=== PATIENT | female | born 1955 | race Caucasian/White ===

== ENCOUNTER 2019-08-29 08:03 | Inpatient (IN) | payer BC, SELFPAY ==
[2019-08-29] VITALS (41 sets, daily range): BP systolic 89–134; BP diastolic 56–95; PULSE 79–134; RESP 7–38; TEMP 36.5–37.1; O2SAT 94–99; BMI 27.4
--- NOTE | 2019-08-29 08:12 | XR_ITS ---
WS: [id number] PORTABLE CHEST HISTORY: chest pain COMPARISON: 03/22/2015 Lungs are clear and well expanded. No pleural effusion or pneumothorax. Cardiac size: Normal. Mediastinum/Aorta: Normal mediastinum. No osseous abnormality seen. XR/XR chest 1V portable [id number] IMPRESSION: Unremarkable portable chest.
--- NOTE | 2019-08-29 08:12 | ECG_ITS ---
Measurements Intervals [place] Rate: 73 P: 127 DE: 161 QRS: 193 QRSD: 84 T: 128 QT: 389 QTc: 430 SINUS RHYTHM ARM LEADS REVERSED [INVERTED P AND QRS IN I] INTERPRETATION BASED ON A DEFAULT AGE OF 40 YEARS No previous ECG available for comparison Electronically Signed On 08-29-2019 22:02:34 PENCIL INSPECTOR by Danielle Still M.D. [id number]
--- NOTE | 2019-08-29 08:18 | PC.NURSE ---
PORTABLE XRAY AT BEDSIDE
--- NOTE | 2019-08-29 08:20 | ED_ITS ---
Entered by Sam Leroy, acting as scribe for HPI - Chest Pain General: Chief Complaint: Chest Pain Stated Complaint: cp Time Seen by Provider: 08/29/19 08:29 History of Present Illness: HPI narrative: 63 yo female presents with chest pain. Pt took diazepam before being seen in the ER. Pt states that she was at work, recieved some bad news and her chest began hurting right after that. Pt states that she has had a stress related heart attack in the past. Pt states that she had some shortness of breath. MD complaint: chest pain Associated symptoms: Reports dyspnea; Deny abdominal pain, fever(s), nausea, palpitations or vomiting Review of Systems General: Reports: 10 or more systems reviewed and unremarkable except in HPI and below Const: Denies: fever, chills, body aches, change in appetite, change in weight or fatigue Eyes: Denies: change in vision, blurry vision, blind spots or photophobia ENMT: Denies: throat pain, uvular edema or enlarged tonsils Card: Reports: chest pain; Denies: palpitations or irregular heart rhythm Resp: Reports: shortness of breath; Denies: productive cough, non-productive cough or wheezing GI: Denies: abdominal pain, nausea, vomiting or vomiting blood : Denies: flank pain, difficulty urinating or painful urination Musc: Denies: neck pain, back pain or extremity pain Skin/Breast: Denies: rash, itching, redness or skin swelling Neuro: Denies: headache or numbness in extremities Psych: Reports: anxiety; Denies: depression or mood swings Endo: Denies: excessive urination or excessive thirst Will/Lymph: Denies: easy bruising or easy bleeding All/Imm: Denies: hives, throat swelling or tongue swelling PFSH ED PFSH: Statuses (acute, chronic, etc) shown below reflect problem list status as previously entered and may not be historically accurate Medical History (Updated 08/29/19 @ 10:57 by Ayaan Huerta DO) Anemia (Acute) Anxiety (Acute) Depression (Acute) Fibromyalgia (Acute) Heart attack (Acute) Hypothyroidism (Acute) Insomnia (Acute) Surgical History (Updated 08/29/19 @ 08:37 by Sam Leroy) H/O tubal ligation (Acute) History of bladder suspension procedure (Acute) History of knee replacement (Acute) Social History Smoking and tobacco status: former smoker Physical Exam Const: COMMON NORMALS: no apparent distress, average body habitus, oriented x3, no limitations, healthy appearing, alert and well nourished HENMT: COMMON NORMALS: normocephalic, head/scalp atraumatic, hearing grossly normal bilaterally, external ears normal, EAC's normal, TM's normal bilaterally, external nose normal, nasal mucous membranes and turbinates normal, moist oral mucous membranes, oropharynx normal, dentition normal and gingiva normal HEAD & SCALP: normocephalic and atraumatic NOSE: external nose normal and nasal mucous membranes and turbinates normal EXTERNAL EAR: Yes external ears normal EXTERNAL AUDITORY CANAL: EAC's normal TYMPANIC MEMBRANE: TM's normal bilaterally THROAT: no uvular edema Eye: COMMON NORMALS: PERRL, conjunctivae normal, no papilledema and fundi normal bilaterally CONJUNCTIVA: Yes conjunctivae normal PUPIL: Yes PERRL DIRECT OPHTHALMOSCOPY: Yes no papilledema and Yes fundi normal bilaterally Neck/C-Spine: COMMON NORMALS: full ROM, no lymphadenopathy, supple, no meningeal signs, no JVD, thyroid normal and no carotid bruits THYROID: thyroid normal Chest: COMMONS NORMALS: inspection of chest normal and palpation of chest normal Resp: COMMON NORMALS: normal respiratory effort, no retractions, no use of accessory muscles, clear to auscultation bilaterally and percussion normal AUSCULTATION: clear to auscultation bilaterally PERCUSSION: percussion normal Cardio: COMMON NORMALS: no JVD, regular rate, regular rhythm, S1 normal heart sound, S2 normal heart sound, no gallops, no clicks, no murmurs, no rub and peripheral pulses 2+ throughout RATE: regular rate RHYTHM: regular rhythm HEART SOUNDS: S1 normal and S2 normal PERIPHERAL PULSES: pulses 2+ throughout GI: COMMON NORMALS: normal to inspection, nondistended, normoactive bowel sounds, soft to palpation, non-tender, no hepatosplenomegaly, no masses and no bruits PALPATION: Yes soft and Yes no hepatosplenomegaly : COMMON NORMALS: Yes no CVA tenderness and Yes external appearance normal BLADDER/KIDNEY EXAM: Yes no CVA tenderness Back/Pelvis: COMMON NORMALS: no CVA tenderness, thoracic and lumbar spine normal to inspection, no thoracic nor lumbar tenderness, thoraco-lumbar ROM normal and straight leg raise negative bilaterally Extremity: COMMON NORMALS: normal to inspection, full ROM, normal capillary refill, no joint enlargement, no clubbing, cyanosis or edema, no calf tenderness and no pedal edema Neuro: COMMON NORMALS: oriented x3 SENSORIUM/ORIENTATION: Yes alert MENINGEAL SIGNS: Yes no meningeal signs Skin: COMMON NORMALS: no rashes or lesions noted, no wounds, skin turgor normal, no jaundice, no petechiae and no mottling GENERAL SKIN EXAM: no rashes or lesions noted and turgor normal Course Vital Signs: Vital signs: Vital Signs Temperature 97.7 F 08/29/19 08:09 Pulse Rate 85 08/29/19 10:56 Respiratory Rate 15 08/29/19 10:56 Blood Pressure 121/67 08/29/19 10:56 Pulse Oximetry 97 08/29/19 10:56 MDM - Chest Pain Lab Data: Labs: Lab Results 08/29/19 08/29/19 08/29/19 Range/Units 08:20 08:20 08:20 WBC 7.8 (4.0-10.0) 10^3/ uL RBC 4.30 (4.1-5.3) 10^6/u L Hgb 12.2 (11.5-15.3) g/dL Hct 38.5 (37.0-47.0) % MCV 89.5 (81-99) fL MCH 28.4 (28.0-34.0) pg MCHC 31.7 (30.0-36.0) g/dL RDW 14.1 (12.1-15.1) % Plt Count 269 (130-400) 10^3/c mm MPV 10.2 (7.4-10.4) fL Neut % (Auto) 59.1 % Lymph % (Auto) 28.3 % [place] % (Auto) 8.5 % Eos % (Auto) 3.3 % Baso % (Auto) 0.5 % Neut # (Auto) 4.6 (1.8-7.7) 10^3/u L Lymph # (Auto) 2.2 (0.8-4.8) 10^3/u L [place] # (Auto) 0.7 (0.2-0.9) 10^3/u L Eos # (Auto) 0.3 (0.0-0.8) 10^3/u L Baso # (Auto) 0.0 (0.0-0.1) 10^3/u L Nucleated RBC % (a uto) 0 % Nucleated RBCs # 0.0 /100WBC Sodium 141 (136-145) mmol/L Potassium 4.1 (3.5-5.1) mmol/L Chloride 103 (98-107) mmol/L Carbon Dioxide 27 (22-29) mmol/L Anion Gap 15.1 (5-19) BUN 14 (8-23) mg/dL Creatinine 0.7 (0.5-0.9) mg/dL GFR Calculation 84.5 L (90-130) mL/min Glucose 148 H (74-106) mg/dL Calcium 9.9 (8.8-10.2) mg/Dl Troponin T Baselin e 32 H (0-10) ng/mL Troponin T 120 Min nat[place] (0-10) ng/mL Delta Troponin T (0-10) ABS# TSH (0.27-4.20) uIU/ mL 08/29/19 08/29/19 Range/Units 08:23 10:18 WBC (4.0-10.0) 10^3/ uL RBC (4.1-5.3) 10^6/u L Hgb (11.5-15.3) g/dL Hct (37.0-47.0) % MCV (81-99) fL MCH (28.0-34.0) pg MCHC (30.0-36.0) g/dL RDW (12.1-15.1) % Plt Count (130-400) 10^3/c mm MPV (7.4-10.4) fL Neut % (Auto) % Lymph % (Auto) % [place] % (Auto) % Eos % (Auto) % Baso % (Auto) % Neut # (Auto) (1.8-7.7) 10^3/u L Lymph # (Auto) (0.8-4.8) 10^3/u L [place] # (Auto) (0.2-0.9) 10^3/u L Eos # (Auto) (0.0-0.8) 10^3/u L Baso # (Auto) (0.0-0.1) 10^3/u L Nucleated RBC % (a uto) % Nucleated RBCs # /100WBC Sodium (136-145) mmol/L Potassium (3.5-5.1) mmol/L Chloride (98-107) mmol/L Carbon Dioxide (22-29) mmol/L Anion Gap (5-19) BUN (8-23) mg/dL Creatinine (0.5-0.9) mg/dL GFR Calculation (90-130) mL/min Glucose (74-106) mg/dL Calcium (8.8-10.2) mg/Dl Troponin T Baselin e (0-10) ng/mL Troponin T 120 Min [place] 113.60 H (0-10) ng/mL Delta Troponin T 81.60 H* (0-10) ABS# TSH 2.52 (0.27-4.20) uIU/ mL Discharge Plan Discharge Patient Disposition: Admitted As Inpatient Clinical Impression: Non-ST elevation [place] (NSTEMI), Unstable angina pectoris Condition: Fair Referrals: Anju Lloyd MD [Family Provider] - Coding Level of Care Code ED Storage Battery Inspector for Chg Fwd Exam Problem Focused The documentation recorded by the Rad floyd Kialy, accurately reflects the service I personally performed and the decisions made by , Ayaan Huerta, Aug 29, 2019 08:03
[2019-08-29 08:30] LABS: Basophils % 0.5 %; Eosinophils # 0.3 10^3/uL (0.0-0.8); Eosinophils % 3.3 %; Hematocrit 38.5 % (37.0-47.0); Hemoglobin 12.2 g/dL (11.5-15.3); Lymphocytes # 2.2 10^3/uL (0.8-4.8); Lymphocytes % 28.3 %; Mean Corpuscular HGB Conc 31.7 g/dL (30.0-36.0); Mean Corpuscular Hemoglobin 28.4 pg (28.0-34.0); Mean Corpuscular Volume 89.5 fL (81-99); Mean Platelet Volume 10.2 fL (7.4-10.4); Monocytes # 0.7 10^3/uL (0.2-0.9); Monocytes % 8.5 %; Neutrophils # 4.6 10^3/uL (1.8-7.7); Neutrophils % 59.1 %; Nucleated Red Blood Cells % 0 %; Platelet Count 269 10^3/cmm (130-400); Red Cell Distribution Width 14.1 % (12.1-15.1); White Blood Count 7.8 10^3/uL (4.0-10.0)
[2019-08-29 08:49] LABS: Anion Gap 15.1 (5-19); Blood Urea Nitrogen 14 mg/dL (8-23); Calcium 9.9 mg/Dl (8.8-10.2); Carbon Dioxide 27 mmol/L (22-29); Chloride 103 mmol/L (98-107); Glomerular Filtration Rate 84.5 mL/min (90-130); Glucose 148 mg/dL (74-106); Potassium 4.1 mmol/L (3.5-5.1); Sodium 141 mmol/L (136-145)
[2019-08-29 08:51] LABS: Troponin(5th) Baseline 32 ng/mL (0-10)
[2019-08-29] MEDS: ondansetron 2 mg/ML SDV 2 mL 4 MG IVP (09:17)
[2019-08-29] MEDS: morphine 4 mg/mL SDV 1 mL 2 MG IVP (09:17)
[2019-08-29 09:53] LABS: Thyroid Stimulating Hormone 2.52 uIU/mL (0.27-4.20)
--- NOTE | 2019-08-29 10:12 | ECG_ITS ---
Measurements Intervals [employer] Rate: 85 P: 51 [place]: 157 QRS: 11 QRSD: 85 T: 92 QT: 383 QTc: 456 SINUS RHYTHM LOW QRS VOLTAGE IN PRECORDIAL LEADS [QRS DEFLECTION < 1.0 mV IN CHEST LEADS] NONSPECIFIC T-WAVE ABNORMALITY No previous ECG available for comparison Electronically Signed On 08-29-2019 22:08:01 MULTINEEDLE SHIRRER by Danielle Still M.D. [id number]
--- NOTE | 2019-08-29 11:06 | USCV_ITS ---
Suzan Moncada Age: 63 Gender: F : 1955 Exam Date: 08/29/2019 16:22 Ordering Phys: Ayaan Huerta DO Technologist: Mattie Mahoney Exam Location: [facility] Indication: NSTEMI BP: 89 / 59 HR: 89 Rhythm: Sinus Technical Quality: Adequate MEASUREMENTS (Male / Female) Normal Values 2D ECHO LV Diastolic Diameter PLAX 4.4 cm 4.2 - 5.9 / 3.9 - 5.3 cm LV Systolic Diameter PLAX 3.4 cm LV Chamber Size 3.7 cm IVS Diastolic Thickness 1.4 cm 0.6 - 1.0 / 0.6 - 0.9 cm IVS Systolic Thickness 1.5 cm LVPW Diastolic Thickness 2.0 cm 0.6 - 1.0 / 0.6 - 0.9 cm LVPW Systolic Thickness 2.1 cm RV Chamber Size 2.5 cm LVOT Diameter 2.0 cm LV Ejection Fraction 2D Teich 45.5 % LV Ejection Fraction MOD 2C 60.8 % LV Ejection Fraction 2C AL 63.0 % LA Diameter 3.9 cm LA Width 2.7 cm LA Height 3.8 cm RA Width 2.1 cm RA Height 3.5 cm Aorta at Sinotubular Diameter 2.6 cm M-MODE LV Diastolic Diameter MM 5.4 cm 4.2 - 5.9 / 3.9 - 5.3 cm LV Systolic Diameter MM 4.0 cm LV Ejection Fraction MM Teich 51.1 % IVS Diastolic Thickness MM 0.9 cm 0.6 - 1.0 / 0.6 - 0.9 cm IVS Systolic Thickness MM 1.0 cm LVPW Diastolic Thickness MM 1.0 cm 0.6 - 1.0 / 0.6 - 0.9 cm LVPW Systolic Thickness MM 1.1 cm Aortic Annulus Diameter 3.1 cm LA Ao Ratio MM 1.3 MV E Point Septal Separation 1.0 cm DOPPLER AV Peak Velocity 111.0 cm/s LVOT Peak Velocity 87.0 cm/s AV Area Cont Eq vti 2.8 cm squared AV Area Cont Eq pk 2.6 cm squared MV Area PHT 8.5 cm squared Mitral E to A Ratio 0.6 MV E' Velocity 44.0 cm/s Mitral E to MV E' Ratio 6.8 Mitral E to LV E' Lateral Ratio 8.0 Mitral E to LV E' Septal Ratio 6.1 TR Peak Velocity 177.0 cm/s TR Peak Gradient 12.5 mmHg TV Peak E Velocity 64.0 cm/s Right Atrial Pressure 3.0 mmHg Pulmonary Artery Systolic Pressu 15.5 mmHg PV Peak Velocity 80.0 cm/s RV Acceleration Time 0.2 s RV Ejection Time 0.4 s RV AcT/ET 0.5 FINDINGS Left Ventricle Moderate hypokinesia of the basal and mid septum in the anteroseptal segments. LV ejection fraction was around 50%.Grade I/IV diastolic dysfunction (abnormal relaxation filling pattern), normal to mildly elevated filling pressures. Right Ventricle Normal right ventricular size and systolic function. Right Atrium Normal right atrial size. Left Atrium Mildly increased left atrial size. Mitral Valve No gross abnormalities noted Aortic Valve No gross abnormalities noted Tricuspid Valve No gross abnormalities noted Pulmonic Valve Pulmonic valve not well visualized. Pericardium No pericardial effusion. Aorta Normal aortic annulus size. CONCLUSIONS Moderate hypokinesia of the basal and mid septum and the anteroseptal segments. LV ejection fraction was around 45 -50%. Grade I/IV diastolic dysfunction (abnormal relaxation filling pattern), normal to mildly elevated filling pressures. Left ventricle is mildly dilated. The other chambers appears to be of normal size No significant stenotic valvular lesions. There is no pericardial effusion. There are no intracardiac masses. No similar previous studies are available for comparison Dr Danielle Still MD [facility] WITH [facility] (Electronically Signed) Final Date: 29 August 2019 17:18 S
--- NOTE | 2019-08-29 11:33 | PC.NURSE ---
hospitalist (Dr. Rojas) in room to evaluate pt in ER
--- NOTE | 2019-08-29 12:05 | PM.HP ---
Providers/Chief Complaint Admitting Physician: Rama Rojas DO Primary Care Provider: Dr. Lloyd Chief Complaint: Chest pain History of Present Illness Suzan Moncada is a 63 year old female with a past medical history of hypothyroidism that presented to the emergency department today for chest pain. She stated that she was at work this morning when she began having a spasm-like pain in the center of her chest that was radiating almost all the way through her back. She stated that she believed it was due to stress because she just found out this morning that her best friend overnight. She stated that the pain was severe rating up into the left side of her neck and stated that she felt like she just needed to keep taking big deep breaths in. She stated that she took some diazepam at home but due to continued chest pain she came into the ER for further evaluation and treatment. She reports having a history of a stress-induced heart attack in the past. Patient reported that she had been feeling well prior to this episode, no recent illness. Patient denies any fevers or chills, no sick contacts. She reports a viral upper respiratory infection in July, however has been doing well since that time. Patient was seen and evaluated in the emergency department and due to concern for non-ST elevation [place] cardiology was consulted and patient was admitted for further evaluation and treatment. Review of Systems Const: Denies: fever or chills Eyes: Denies: change in vision ENMT: Denies: nasal congestion Card: Reports: chest pain; Denies: palpitations or edema Resp: Denies: shortness of breath, productive cough or coughing up blood GI: Reports: nausea; Denies: abdominal pain, vomiting, diarrhea, constipation, blood in stool or black tarry stool : Denies: painful urination or blood in urine Musc: Denies: extremity pain or muscle cramps Skin/Breast: Denies: rash or new lesion Neuro: Denies: headache or dizziness Psych: Reports: other (upset due to loss of her best friend) Endo: Denies: excessive urination or hot flashes Will/Lymph: Denies: easy bruising or easy bleeding Medications/Allergies Home Medications Medication Instructions Recorded Confirmed Last Taken Type bupropion HCl mg PO 08/29/19 08/29/19 Unknown History levothyroxine 08/29/19 08/29/19 Unknown History Allergies Allergy/AdvReac Type Severity Reaction Status Date / Time No Known Allergies Allergy Verified 08/29/19 08:05 PFSH Acute PFSH: Statuses (acute, chronic, etc) shown below reflect problem list status as previously entered and may not be historically accurate Medical History (Updated 08/29/19 @ 12:13 by Rama Rojas DO) Anemia (Acute) Anxiety (Acute) Depression (Acute) Fibromyalgia (Acute) Hypothyroidism (Acute) Insomnia (Acute) Surgical History H/O tubal ligation (Acute) History of bladder suspension procedure (Acute) History of knee replacement (Acute) L knee Hx of cardiac cath (Acute) 05/08/[address] Still Family History (Updated 08/29/19 @ 12:14 by Rama Rojas DO) Grandmother Diabetes Mother History of permanent cardiac pacemaker placement Due to believed irregular heartbeat Father CAD (coronary artery disease) Social History (Updated 08/29/19 @ 12:14 by Rama Rojas DO) Smoking and tobacco status: former smoker Alcohol intake: never Substance/Drug Use: never Household members: spouse Marital status: Vitals/I&O/Wt Last Vital Signs Temp 97.7 F 08/29/19 08:09 Pulse 85 08/29/19 10:56 Resp 15 08/29/19 10:56 BP 121/67 08/29/19 10:56 Pulse Ox 97 08/29/19 10:56 Weight last 48 hrs Weight 74.843 kg Physical Exam Const: COMMON NORMALS: oriented x3 and alert GENERAL APPEARANCE: cooperative ORIENTATION/CONSCIOUSNESS: Yes awake, Yes oriented to person, Yes oriented to place and Yes oriented to time HENMT: COMMON NORMALS: normocephalic and head/scalp atraumatic HEAD & SCALP: normocephalic and atraumatic Eye: COMMON NORMALS: PERRL PUPIL: Yes PERRL Neck/C-Spine: COMMON NORMALS: supple GENERAL: Yes normal visual inspection Resp: COMMON NORMALS: normal respiratory effort and clear to auscultation bilaterally EFFORT & INSPECTION: Yes able to speak in complete sentences AUSCULTATION: clear to auscultation bilaterally, no rhonchi and no wheezes Cardio: COMMON NORMALS: regular rate and regular rhythm RATE: regular rate RHYTHM: regular rhythm OTHER: faint systolic murmur GI: COMMON NORMALS: soft to palpation and non-tender INSPECTION: No abdominal distension AUSCULTATION: Yes normoactive bowel sounds PALPATION: Yes soft Extremity: COMMON NORMALS: no clubbing, cyanosis or edema and no calf tenderness Neuro: COMMON NORMALS: oriented x3, CN's II-XII intact bilaterally, moves all extremities and no focal motor deficits SENSORIUM/ORIENTATION: Yes alert, Yes oriented to person, Yes oriented to place and Yes oriented to time SPEECH: speech normal Psych: COMMON NORMALS: mental status grossly normal and cooperative Skin: COMMON NORMALS: no rashes or lesions noted Data : 08/29/19 08:20 08/29/19 08:20 CXR: I personally reviewed and interpreted this imaging study as follows: My impression: No acute cardiopulmonary process A&P Assessment and plan (1) Non-ST elevation [place] (NSTEMI): Admit to cardiac stepdown with telemetry Serial EKG and troponin Patient is now chest pain-free, nitro as needed, treatment dose Lovenox and loading dose of Plavix Continue aspirin and statin Cardiology consultation due to non-ST elevation [place], appreciate consultation by Dr. Still, will follow up with recommendations Patient reports history of stress induced heart attack in the past, cardiac cath from 05/08/[address] Still reviewed. Status: Acute Code(s): I21.4 - Non-ST elevation (NSTEMI) myocardial infarction Additional A&P Information Hypothyroidism: Continue home levothyroxine, TSH within normal limits Depression: Continue home bupropion 150 mg daily Anxiety: On diazepam as needed at home Bereavement: Loss of her best friend last night Hyperglycemia without prior history of diabetes: We will check hemoglobin A1c Attestations Medical Necessity Statement*: Patient requires hospitalization due to non-ST elevation [place], expected stay greater than 2 midnights Coding Level of Care Code Acute Privacy Analyst for [facility] Diagnoses Non-ST elevation [place] (NSTEMI) I21.4
[2019-08-29 12:09] LABS: INR 0.98 (0.8-1.2)
[2019-08-29 12:16] LABS: Chol HDL Ratio 4.13 mg/dL (0.0-4.40); Cholesterol 223 mg/dL (0-200); HDL Cholesterol 54 mg/dL (60-100); LDL Cholesterol Calculated 137 mg/dL (50-129); LDL HDL Ratio 2.54 RATIO (0.00-3.22); Triglycerides 159 mg/dL (0-150)
[2019-08-29 12:35] LABS: Estmated Average Glucose 143; Hemoglobin A1C 6.6 % (4.0-6.0)
--- NOTE | 2019-08-29 14:12 | ECG_ITS ---
Measurements Intervals [place] Rate: 84 P: 50 NM: 153 QRS: 4 QRSD: 85 T: 86 QT: 391 QTc: 464 SINUS RHYTHM LOW QRS VOLTAGE IN PRECORDIAL LEADS [QRS DEFLECTION < 1.0 mV IN CHEST LEADS] SEPTAL MYOCARDIAL INFARCTION [40+ ms Q WAVE IN V1/V2], PROBABLY OLD No previous ECG available for comparison Electronically Signed On 08-29-2019 22:08:37 KEY HOLDER by Danielle Still M.D. [email or web address]
[2019-08-29 15:27] LABS: Troponin 5 6HR 161.1 ng/L (0-10); Troponin 5 6HR Delta 129.1 ng/L (0-12)
--- NOTE | 2019-08-29 16:34 | PM.CONSULT ---
Providers/Reason For Consult Consulting Physican/Specialty*: Krupa Still MD/cardiology Reason for Consult*: Patient with the chest pain and elevated troponin T Attending Physician: Rama Rojas MD History of Present Illness History of Present Illness Suzan Moncada is a 63 year old female is admitted to the hospital with a prolonged episode of chest pain and elevated troponin I. Patient apparently has been in her baseline state of health up until this morning while she was at work, came to find out that 1 of her coworkers of motor vehicle accident last night. This was a very stressful news since the diseased was her coworker for many years. She started having pain in the upper part of the chest, radiating across the chest, to the shoulders and to the back. She might have had some associated nausea and dizziness. Intensity of the pain was 5/10. She took the medication for anxiety and rested for a while. There was no relief of the symptoms. At that point, she decided to come to the hospital. In the emergency room, patient was given morphine and Zofran. The pain gradually subsided. Total duration of the pain was 1-1/2 hours. Currently at the time of my examination, the patient is pain-free. She has some funny feeling in the chest. No other specific complaints. In April 2009, she presented to the hospital with a more or less similar complaints. She had features of possibly stress-induced myocardial infarction. Her coronary angiogram revealing no significant obstructive coronary artery disease. Her LV ejection fraction was around 45% at that time. She has not had any recurrence of similar chest pain since then up until today. She has no history for hypertension, diabetes or dyslipidemia. She has a history of hypothyroidism, anxiety/depressive illness, fibromyalgia Review of Systems Const: Reports: other (Anorexia); Denies: fever, chills, change in appetite, fatigue or night sweats Eyes: Denies: change in vision, blurry vision or eye discomfort ENMT: Denies: bleeding gums, nose bleeds or other (Spinning Sensation, Trouble Swallowing) Card: Denies: syncope, pre-syncope, shortness of breath when lying down or leg pain with exertion Resp: Denies: productive cough, change in phlegm color or coughing up blood GI: Reports: nausea; Denies: vomiting, vomiting blood, bloating, blood in stool or black tarry stool : Denies: blood in urine or vaginal bleeding Musc: Denies: neck pain, extremity pain, extremity swelling, redness, muscle cramps, muscle weakness or other (Neck Pain or Swollen Glands) Skin/Breast: Denies: rash, itching, redness, new lesion, changes in skin color, yellow skin, nail changes or breast mass/lump Neuro: Reports: numbness in extremities (She has been having complaining of numbness/also sensation in the lateral 3 fingers bilaterally and also some perioral numbness.) and changes in sensation; Denies: headache, lack of coordination, frequent falls, dizziness, vertigo, seizure-like activity or other (TIA, Numbness) Psych: Reports: anxiety, depression and other Endo: Denies: excessive urination, excessive thirst or other (Abnormal Hair Loss) Will/Lymph: Denies: easy bruising All/Imm: Denies: hives Meds/Allergies Home Medications and Allergies Home Medications Medication Instructions Recorded Confirmed Type bupropion HCl 150 mg PO DAILY 08/29/19 08/29/19 History levothyroxine [Synthroid] 137 mcg PO DAILY 08/29/19 08/30/19 History Allergies Allergy/AdvReac Type Severity Reaction Status Date / Time No Known Allergies Allergy Verified 08/29/19 08:05 PFSH Acute PFSH: Statuses (acute, chronic, etc) shown below reflect problem list status as previously entered and may not be historically accurate Medical History Anemia (Acute) Anxiety (Acute) Cardiomyopathy (Acute) Depression (Acute) Fibromyalgia (Acute) Hypotension (Acute) Hypothyroidism (Acute) Insomnia (Acute) Surgical History H/O tubal ligation (Acute) History of bladder suspension procedure (Acute) History of knee replacement (Acute) L knee History of surgery (Acute) vaginal prolapse repair Hx of cardiac cath (Acute) 05/08/[address] Still Family History Grandmother Diabetes Mother History of permanent cardiac pacemaker placement Due to believed irregular heartbeat Father CAD (coronary artery disease) Social History Smoking and tobacco status: former smoker Alcohol intake: never Substance/Drug Use: never Household members: spouse Marital status: Vitals/I&O/Wt Last Vital Signs Temp 98.5 F 08/29/19 16:10 Pulse 97 08/29/19 16:10 Resp 27 H 08/29/19 16:10 BP 89/59 08/29/19 16:10 Pulse Ox 97 08/29/19 16:10 Weight last 48 hrs Weight 165 lb Physical Exam Narrative: EXAM NARRATIVE: GENERAL: The patient is alert and oriented times three. Not in any acute distress. HEENT: No significant pallor, icterus or lymphadenopathy. The pupils are reactant to light. Oral cavity: There are no mucous membrane lesions. Funduscopic examination: Fundus is not visualized NECK: Trachea appears to be central. No masses noted. No JVD or thyromegaly appreciated. No carotid bruit. RESPIRATORY: Chest is symmetrical. No intercostals muscle retraction or any accessory muscle activation. There is no chest wall tenderness. Breath sounds are heard bilaterally. No rales or rhonchi heard. No evidence of any consolidation. BREASTS: Deferred. HEART: The PMI is in the 5th left intercostals space just inside the midclavicular line. No palpable precordial events. S1 and S2 are normal. No S3 or S4 heard. No pericardial rub or any click heard. ABDOMEN: No vessel pulsations or distention. No tenderness. No organomegaly appreciated. No abdominal bruit. Bowel sounds are normally heard. : Deferred. RECTAL: Deferred. LYMPHATIC: No lymphadenopathy noted in the neck or groin. EXTREMITIES: No edema or cyanosis. No clubbing. The pulses are symmetrical bilaterally. The radial, femoral, dorsalis pedis and the posterior tibial pulses are palpated and found to be in good volume and amplitude. MUSCULOSKELETAL: No acute joint deformities or swelling. SKIN: There are no significant scars or skin rash noted. NEUROPSYCHIATRIC: The patient is alert and oriented x3. Appears to be extremely anxious Data Imaging^: Cardiac catheterization: My impression: On 05/08/2009, she had a cardiac catheterization, when she presented with non-ST relation myocardial infarction. She did not have any significant coronary artery disease. LV ejection fraction was around 45%. She was found to have slightly elevated Troponin I. Her echocardiogramrevealed hypokinesia of the mid and apical septum, anteroseptum, mid and apical anterior wall, and apical inferior wall region. The overall ejection fraction was around 45%. The initial EKG showed nonspecific T-wave changes in the anterolateral leads. The repeat EKG revealed prominent T-inversions in lead I, AVL, V2 with a QT prolongation.) Echo: My impression: The echocardiogram from 08/29/2019 moderate hypokinesia of the basal and mid septum and the anteroseptal segments. LV ejection fraction was around 45 -50%. Grade I/IV diastolic dysfunction (abnormal relaxation filling pattern), normal to mildly elevated filling pressures. Left ventricle is mildly dilated. The other chambers appears to be of normal size No significant stenotic valvular lesions. There is no pericardial effusion. There are no intracardiac masses. No similar previous studies are available for comparison CXR: My impression: Normal cardiac silhouette with no lung infiltrate. No acute pathology noted EKG^: EKG 1: My Interpretation: The EKG revealed a sinus rhythm with diffuse nonspecific ST-T changes in the anterolateral leads. A&P Assessment and plan (1) Non-ST elevation ME (NSTEMI): Patient's clinical features may necessitate acute coronary syndrome. Her blood pressure is running low. According the patient, her systolic blood pressure usually runs in the 90s. Her EKG shows some nonspecific changes. Patient may be treated with aspirin, Lovenox, Plavix, statin drug. Because of the hypotension, I may hold off on any beta-mary For further management of her condition, she may benefit from a repeat cardiac catheterization. I discussed the patient the option of doing a myocardial perfusion imaging, in view of the previous history. However the patient is wanting to go ahead with the angiogram. This would be reasonable. Status: Acute Code(s): I21.4 - Non-ST elevation (NSTEMI) myocardial infarction (2) Cardiomyopathy: Patient had LV dysfunction in 2008, when she presented with non-ST relation myocardial infarction. Apparently there was no repeat echocardiogram since then. Because of the hypotension, I may hold off for any ESTEFANÍA inhibitor at this time. The current echocardiogram was reviewed. Status: Acute Qualifiers: Cardiomyopathy type: other Qualified Code(s): I42.8 - Other cardiomyopathies Code(s): I42.9 - Cardiomyopathy, unspecified (3) Hypothyroidism: Clinically the patient is euthyroid. Status: Acute Qualifiers: Hypothyroidism type: acquired Qualified Code(s): E03.9 - Hypothyroidism, unspecified Code(s): E03.9 - Hypothyroidism, unspecified (4) Anxiety: Patient is known to have anxiety/depressive illness. May continue on the current medications. Status: Acute Code(s): F41.9 - Anxiety disorder, unspecified (5) Hypotension: Patient has a chronically low blood pressure, according the family. 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
--- NOTE | 2019-08-29 16:56 | USCV_ITS ---
Moncada Suzan Age: 63 Gender: F : 1955 Exam Date: 08/29/2019 16:57 Ordering Phys: Danielle Still MD ([email or web address]) Technologist: Mata Castano Exam Location: [facility] – [place] Indication: SUSPECTED BLOCKAGE Risk Factors: Previous Vascular Surgery: Right Brachial BP: / Left Brachial BP: / Right Left Velocity (cm/s) Spectral Plaque Velocity (cm/s) Spectral Plaque Syst/Diast Broadening Syst/Diast Broadening 62.20/ 14.70 Prox CCA 92.00 / 23.40 78.30/ 19.80 Mid CCA 79.60 / 23.20 70.60/ 19.80 Distal CCA 69.40 / 21.10 73.90/ 26.50 Prox ICA 59.70 / 19.10 98.10/ 29.80 Mid ICA 82.10 / 34.00 79.40/ 28.70 Distal ICA 64.70 / 27.40 118.00 ECA 80.70 1.25 ICA/CCA 1.03 Antegrade Vertebral Antegrade 28.00/ 10.10 cm/s 42.30/ 14.90 cm/s Tri Subclavian Tri 89.70 122.4 0 FINDINGS Minimal plaques bilaterally at the bifurcations and proximal internal carotid arteries. Intimal thickening in the common carotid arteries bilaterally. Antegrade flow in the vertebral arteries bilaterally. Normal Doppler flow velocities in the external carotid arteries bilaterally CONCLUSIONS Minimal plaques bilaterally at the bifurcations and proximal internal carotid arteries. No significant stenosis, based on the above findings. Dr Danielle Still MD [facility] (Electronically Signed) Final Date: 30 August 2019 09:18 S
[2019-08-29] MEDS: sodium chloride 0.9% 1,000 ML 100 ML IV (17:08)
--- NOTE | 2019-08-29 18:44 | PC.NURSE ---
Patient report called to SESAR Miranda on CSU. Ruth to confirm with Dr. Still plans for cath/angiogram possibly tomorrow.
[2019-08-29] MEDS: clopidogrel 300 mg Tablet PO (19:40)
[2019-08-29] MEDS: atorvastatin 40 mg Tablet PO (20:29)
[2019-08-29] MEDS: nitroglycerin 0.4 mg sublingual Tablet SUBLINGUAL (23:56)
--- NOTE | 2019-08-29 23:58 | PC.NURSE ---
PT ARRIVED TO FLOOR FROM ICU TO CSU 104 VIA WHEEL CHAIR. PT AMBULATED TO BED FROM [facility]. PT HAS FLUIDS RUNNING AT 100 ML/HR NS. PT HAS IV IN LEFT AC SPACE. PT IS IN SINUS RHYTHM. PT IS HAVING ANGIOGRAM TOMORROW. VS ARE WNL. WILL CONTINUE TO MONITOR.
[2019-08-30] VITALS (34 sets, daily range): BP systolic 59–122; BP diastolic 37–81; PULSE 72–105; RESP 13–30; TEMP 36.6–36.8; O2SAT 92–99
--- NOTE | 2019-08-30 00:02 | PC.NURSE ---
PT C/O OF CHEST PAIN 5/10 THAT IN DULL AND NON RADIATING. PT C/O PAIN BEING ON THE LEFT UPPER ANTERIOR AREA. NO OTHER C/O AT THIS TIME. SUBLINGUAL NITRO WAS GIVEN FOR CHEST PAIN. 5 MINUTES LATER REASSESSED AND CHEST PAIN IS 3/10. WILL CONTINUE TO MONITOR.
--- NOTE | 2019-08-30 00:06 | PC.NURSE ---
One nitro given SL by Jett Fall LPN. BP now 98/67 with HR of 98 and regular. Skin w/d. Respirations even and unlabored at 21. Pain at 10/16. Will monitor.
--- NOTE | 2019-08-30 00:12 | PC.NURSE ---
Patient sitting on side of bed. Complaining of feeling nauseated and dizzy. BP now 64/39 with HR of 88 and showing SR. IVF of NS up to 100ml/hr. Had patient lie down in the bed. Skin w/d. Respirations even and unlabored at 20. Rates CP at 0/10. Will monitor.
--- NOTE | 2019-08-30 00:19 | PC.NURSE ---
BP now at 81/48 with HR of 86 and showing SR. Respirations even and unlabored at 23. Denies CP at this time. Will monitor
--- NOTE | 2019-08-30 00:21 | PC.NURSE ---
BP 59/37 with HR of 77. Respirations even and unlabored at 16. Monitor showing SR. Skin w/d. Color pink. Denies CP. Will monitor. IVF continues to run at 100ml/hr.
--- NOTE | 2019-08-30 00:24 | PC.NURSE ---
BP now 89/52 with HR of 77 and regular. RR at 19 even and unlabored. Continues to deny CP at this time. Will monitor. No other changes in patient at this time.
--- NOTE | 2019-08-30 00:32 | PC.NURSE ---
BP 94/59 with HR of 81 and regular. RR at 18 even and unlabored. Denies CP. Feel a lot better. Will monitor.
--- NOTE | 2019-08-30 00:42 | PC.NURSE ---
BP 96/57 with HR of 81 and regular. RR at 21 even and unlabored. Denies pain or discomfort at this time. Will monitor.
[2019-08-30] MEDS: sodium chloride 0.9% 1,000 ML 100 ML IV ×2 (02:46→14:30)
--- NOTE | 2019-08-30 03:30 | PC.NURSE ---
Lab in room attempting to draw blood. Patient sitting on side of bed laughing and smiling. Denies any pain at this time. Will monitor.
--- NOTE | 2019-08-30 03:45 | PC.NURSE ---
This nurse met Dr. Barker in [place] and updated him on status of patient after receiving nitro. No new orders received at this time. Will monitor.
[2019-08-30 05:53] LABS: Anion Gap 14.1 (5-19); Blood Urea Nitrogen 12 mg/dL (8-23); Calcium 9.7 mg/Dl (8.8-10.2); Carbon Dioxide 25 mmol/L (22-29); Chloride 105 mmol/L (98-107); Glomerular Filtration Rate 84.5 mL/min (90-130); Glucose 130 mg/dL (74-106); Potassium 4.1 mmol/L (3.5-5.1); Sodium 140 mmol/L (136-145)
[2019-08-30] MEDS: aspirin 325 mg EC Tablet PO (08:34)
[2019-08-30] MEDS: buPROPion XL (24 HR) 150 mg Tablet PO (08:34)
[2019-08-30] MEDS: clopidogrel 75 mg Tablet PO (08:35)
--- NOTE | 2019-08-30 09:37 | P.PN_ITS ---
Subjective Subjective: Interval history: Patient awake in bed at time of exam this morning. She reported no current chest pain but did report slight headache that starts in her neck wrapping around to the front of her head. Patient reported episode of chest pain overnight Vitals/I&O/Wt Last Vital Signs Temp 97.9 F 08/30/19 07:13 Pulse 72 08/30/19 07:13 Resp 13 08/30/19 07:13 BP 104/71 08/30/19 07:13 Pulse Ox 96 08/30/19 07:13 08/29/19 08/30/19 08/30/19 22:59 06:59 14:59 Intake Total 270 / 270 1663.333 / 1933.333 240 / 240 Balance 270 / 270 1663.333 / 1933.333 240 / 240 Weight last 48 hrs Weight 74.571 kg Weight 74.843 kg Physical Exam Const: COMMON NORMALS: oriented x3 and alert GENERAL APPEARANCE: cooperative ORIENTATION/CONSCIOUSNESS: Yes awake, Yes oriented to person, Yes oriented to place and Yes oriented to time HENMT: COMMON NORMALS: normocephalic and head/scalp atraumatic HEAD & SCALP: normocephalic and atraumatic Eye: COMMON NORMALS: PERRL PUPIL: Yes PERRL Neck/C-Spine: COMMON NORMALS: supple GENERAL: Yes normal visual inspection Resp: COMMON NORMALS: normal respiratory effort and clear to auscultation bilaterally EFFORT & INSPECTION: Yes able to speak in complete sentences AUSCULTATION: clear to auscultation bilaterally, no rhonchi and no wheezes Cardio: COMMON NORMALS: regular rate and regular rhythm RATE: regular rate RHYTHM: regular rhythm GI: COMMON NORMALS: soft to palpation and non-tender INSPECTION: No abdominal distension AUSCULTATION: Yes normoactive bowel sounds PALPATION: Yes soft Extremity: COMMON NORMALS: no clubbing, cyanosis or edema and no calf tenderness Neuro: COMMON NORMALS: oriented x3, CN's II-XII intact bilaterally, moves all extremities and no focal motor deficits SENSORIUM/ORIENTATION: Yes alert, Yes oriented to person, Yes oriented to place and Yes oriented to time SPEECH: speech normal Psych: COMMON NORMALS: mental status grossly normal and cooperative Skin: COMMON NORMALS: no rashes or lesions noted GENERAL SKIN EXAM: no rashes or lesions noted Data : 08/29/19 08:20 08/30/19 04:30 A&P Assessment and plan (1) Non-ST elevation MO (NSTEMI): Admit to cardiac stepdown with telemetry Continue aspirin and statin. Treatment dose Lovenox and loading dose of Plavix ordered. Cardiology consultation due to non-ST elevation MO, appreciate consultation by Dr. Still Patient reports history of stress induced heart attack in the past, cardiac cath from 05/08/[address] Still reviewed. Plan for cardiac catheterization today Status: Acute Code(s): I21.4 - Non-ST elevation (NSTEMI) myocardial infarction Additional A&P Information Hypothyroidism: Continue home levothyroxine 137mcg daily Depression: Continue home bupropion 150 mg daily Anxiety: On diazepam as needed at home Bereavement: Loss of her best friend last night Hyperglycemia with abnormal A1c this admission of 6.6 Attestations Medical Necessity Statement*: Patient requires further hospitalization due to non-ST elevation MO Coding Level of Care Code Acute Anesthesiology Physician for Dylon Siddiqui Diagnoses Non-ST elevation MO (NSTEMI) I21.4
[2019-08-30] MEDS: oxyCODONE-APAP 5-325 mg Tablet 1 TAB PO (09:39)
[2019-08-30] MEDS: ondansetron 2 mg/ML SDV 2 mL 4 MG IVP (12:57)
--- NOTE | 2019-08-30 16:07 | XACV_ITS ---
Exam Room: [facility] Ht: 165 cm Wt: 74 kg BSA: 1.86 m2 Gender: Female : 1955 Exam Priority: Routine Procedure(s): Procedure Description: Diagnostic procedure Procedure Description: Left Heart Catheterization Diagnostic Cath Status: Elective Diagnostic Findings No significant disease noted in the Left Main, LAD, Circumflex, or RCA coronary arteries. Minimal ostial narrowing was noted in the left main. The proximal LAD was found to have some intimal irregularities. The first diagonal branch also was found to have minimal intimal irregularities proximally. No significant stenotic lesions were noted. Coronary angiography shows right dominance. Conclusions No significant disease noted in the Left Main, LAD, Circumflex, or RCA coronary arteries. Minimal ostial narrowing was noted in the left main. The left and descending artery was found to have a proximal intimal irregularities. The first diagonal branch also was found to have proximal intimal regularities. Features of left ventricular diastolic dysfunction with an LVEDP of 25 mmHg. This is a 63-year-old white female with a history of hypertension and a previous history of myocardial infarction, in 2008, presented with a prolonged episode of chest pain following a stressful news. She had elevated troponin I. No significant EKG changes. She had recurrence of chest pain while being in the hospital. Clinical features are consistent with a non-ST elevation myocardial infarction. Echocardiogram revealed hypokinesia of the septum and anteroseptal segments with ejection fraction around 45 to 50%. In view of the patient's presenting symptoms and the abnormal objective findings, in order to further evaluate her coronary status, a cardiac catheterization was thought to be appropriate. Patient underwent left heart catheterization with left and right coronary angiogram today. Findings are as follows. Recommendations Continue current medical management and risk factor modification. Diagnostic RX Recommendation: medical therapy and/or counseling LV EDP: 25 mmHg Left Ventriculography Findings: The ventriculogram was not performed because of the high LVEDP and catheter induced ventricular arrhythmia. Pressures Phase:Rest AO : / ( 9 mmHg ) @ 10:55:00 AM 146 mmHg / 77 mmHg ( 110 mmHg ) @ 10:59:00 AM 138 mmHg / 78 mmHg ( 107 mmHg ) @ 10:59:00 AM LV : 162 mmHg / -6 mmHg / @ 10:58:00 AM 162 mmHg / -6 mmHg / @ 10:59:00 AM Valves Phase:DefaultPhase AV : 17.0 mmHg @ 5:19:07 PM AV Mean Gradient: 14.0 mmHg @ 5:19:07 PM Clinical Evaluation EBL: 5mL-10mL Procedural Details Oxygen up to 6LPM. Procedure Consent Obtained. Admit Source: In Patient. Pre-Procedure Time Out. Identified patient by full name and date of as verbalized by the patient/guarantor. Does the consent match the physician's order: Yes. Accurate & Complete Informed Consent: Yes. Inpatient/Outpatient History & Physical on Chart: Yes. If H&P is completed, is and addenduem needed: N/A; If yes, is the addendum complete: N/A. Visualize and Verify Site with Patient/Guarantor: N/A. Relevant Radiology Images available: N/A. Pre-op teaching completed and patient verbalized understanding. The risks, benefits, and alternatives of sedation and/or procedure were discussed by physician. The patient agrees to continue. Procedure started. Correct patient, site and procedure confirmed by cath team. PERRLA. Strong, equal hand fund accounting manager bilaterally. Lungs clear x 5 lobes. IV Site on Arrival: 20 gauge in the left anticubital. Oxygen started at 2liters/min via nasal canula. bilateral groins was prepped with chloroprep then draped in the usual sterile fashion. right radial was prepped with chloroprep then draped in the usual sterile fashion. Baseline sample Acquired. HR: 94 BPM. Physician notified. Physician arrived. Physician scrubbed in. Immediate Pre-Procedure Time Out. Correct Patient: Yes; Correct Procedure: Yes; Correct Site: Yes; Correct Patient Position: Yes; Correct Supplies: Yes; Dried Flammable Prep: Yes; Blood Products Available: N/A;. Lidocaine 1% infiltrated to the right radial. Arterial access obtained. A 5 citizen [place] Derick catheter in over wire. EDP Sample taken: LV 162/-7,26; HR: 115 BPM; SpO2: 93%. Pullback taken: LV 162/-7,20; AO 146/77(110); Mean: 14mmHg, Peak to Peak: 17mmHg, SEP: 29sec/min; HR: 114 BPM; SpO2: 93%. Catheter out. A 5 [place] TIG catheter in over wire. Multiple views taken of right coronary artery. Catheter out. A 5 [place] AL1 catheter in over wire. Multiple views taken of left coronary artery. Catheter out. TR band placed. Hemostasis obtained. Post Procedure: Pulses reassessed and unchanged. PERRLA. Strong, equal hand fund accounting manager bilaterally. No VTE prophylaxis required. Medication's Wasted: Lidocaine 1% = 18 mL. Medication's Wasted: Nitro = 49.8 mg. Medication's Wasted: Other = heprin 1000 units. Total IV fluids: 250 mL. Contrast type used: Visipaque 320 mgI/mL, 500 mL bottle. Contrast Material : Visipaque 105 ml. Complications: none. Estimated blood loss: 5mL-10mL. Procedure completed. [facility] Clinical Fraility Score: 3: Managing Well. Senior Trainer Indications: ACS > 24 hours. Chest Pain Symptom Assessment: Typical Angina Symptoms. Post-op diagnosis: mild CAD. A TR Band was successful obtaining hemostatsis at the Right Radial artery insertion site. Patient transferred by wheelchair to 1st floor. Cardiovascular Instability: No. Vital chart was stopped. Site: Right Radial artery Sheath Size: 6 Fr Hemostasis Method: TR Band Hemostasis Success: Successful Procedure Medications Start: 4:45 PM Stop: 4:45 PM Medication: Benadryl Amount: 25 mg Route: I.V. Start: 4:48 PM Stop: 4:48 PM Medication: Versed Amount: 1 mg Route: I.V. Start: 4:49 PM Stop: 4:49 PM Medication: Fentanyl Amount: 50 mcg Route: I.V. Start: 4:50 PM Stop: 4:50 PM Medication: Benadryl Amount: 25 mg Route: I.V. Start: 4:54 PM Stop: 4:54 PM Medication: Verapamil Amount: 5 mg Route: I.A. Start: 4:54 PM Stop: 4:54 PM Medication: Nitrogylcerin Amount: 200 mcg Route: I.A. Start: 4:54 PM Stop: 4:54 PM Medication: 0.9% Saline Amount: 250 ml Route: I.V. bolus Start: 5:11 PM Stop: 5:11 PM Medication: Versed Amount: 1 mg Route: I.V. Start: 5:11 PM Stop: 5:11 PM Medication: Fentanyl Amount: 50 mcg Route: I.V. Start: 5:16 PM Stop: 5:16 PM Medication: Heparin Amount: 4000 units Route: I.V. I, the attending physician, have reviewed and verified all procedure medications. Yes, all medications given per verbal order History/Risk Factors Hypertension: No Dyslipidemia: No Peripheral Arterial Disease (PAD): No Myocardial Infarction (OK): No Obesity: No Renal Disease: No Tobacco Use: Former Prior Interventions PCI: No CABG: No Valve Surgery: No Report Signatures Finalized by:Dr Danielle Still MD [facility] on 08/30/2019 5:48:55 PM
--- NOTE | 2019-08-30 19:51 | PM.PN ---
Subjective Subjective: Interval history: The patient is feeling okay. She had an episode of chest pain through the night. She took 1 sublingual nitro and the pain gradually subsided. Currently she is pain-free. She still has some funny feeling in the chest. The EKG showed no significant new changes Medications: Medication Review Details: Current Medications Al Hydrox/Mg Hydrox/Simethicone (Maalox) 30 ml PO Q15M PRN PRN Reason: INDIGESTION Alprazolam (Xanax) 0.25 mg PO TID PRN PRN Reason: ANXIETY Aspirin (Aspirin Ec) 325 mg PO DAILY [facility] Last Admin: 08/30/19 08:34 Dose: 325 mg Documented by: Atorvastatin Calcium (Lipitor) 40 mg PO BEDTIME [facility] Last Admin: 08/29/19 20:29 Dose: 40 mg Documented by: Atropine Sulfate (Atropine) 0.5 mg IVP PRN PRN PRN Reason: Symptomatic bradycardia Bupropion HCl (Wellbutrin Xl (24 Hr)) 150 mg PO DAILY [facility] Last Admin: 08/30/19 08:34 Dose: 150 mg Documented by: Cyclobenzaprine HCl (Flexeril) 5 mg PO TID PRN PRN Reason: MUSCLE SPASMS Fentanyl (Sublimaze) 50 mcg IVP PRN PRN PRN Reason: Prior to sheath removal Sodium Chloride (Sodium Chloride 0.9%) 1,000 mls @ 100 mls/hr IV .Q10H [facility] Last Admin: 08/30/19 14:30 Dose: 100 mls/hr Documented by: Levothyroxine Sodium (Synthroid) 112 mcg PO DAILY [facility] Levothyroxine Sodium (Synthroid) 25 mcg PO DAILY [facility] Magnesium Hydroxide (Milk Of Magnesia) 30 ml PO DAILY PRN PRN Reason: CONSTIPATION Morphine Sulfate (Morphine) 2 mg IVP Q4H PRN PRN Reason: SEVERE PAIN Naloxone HCl (Narcan) 0.1 mg IVP Q2M PRN PRN Reason: RESPIRATORY RATE < 8/MIN Nitroglycerin (Nitrostat) 0.4 mg SUBLINGUAL Q5M PRN PRN Reason: CHEST PAIN Last Admin: 08/29/19 23:56 Dose: 1 tab Documented by: Ondansetron HCl (Zofran) 4 mg IVP Q6H PRN PRN Reason: NAUSEA AND VOMITING Last Admin: 08/30/19 12:57 Dose: 4 mg Documented by: Oxycodone/Acetaminophen (Percocet 5-325 Mg) 1 tab PO Q4H PRN PRN Reason: SEVERE PAIN Last Admin: 08/30/19 09:39 Dose: 1 tab Documented by: Temazepam (Restoril) 15 mg PO BEDTIME PRN PRN Reason: INSOMNIA Vitals/I&O/Wt Last Vital Signs Temp 97.8 F 08/30/19 15:20 Pulse 103 H 08/30/19 18:45 Resp 24 H 08/30/19 18:45 BP 103/57 08/30/19 18:45 Pulse Ox 98 08/30/19 18:45 08/30/19 08/30/19 08/30/19 06:59 14:59 22:59 Intake Total 1663.333 / 8527.805 2193 / 1240 240 / 1480 Balance 1663.333 / 5004.355 2237 / 1240 240 / 1480 Weight last 48 hrs Weight 164 lb 6.4 oz Weight 165 lb Physical Exam Narrative: EXAM NARRATIVE: GENERAL: The patient is alert and oriented times three. Not in any acute distress. HEENT: No significant pallor, icterus or lymphadenopathy. The pupils are equal. Oral cavity: There are no mucous membrane lesions. NECK: Trachea appears to be central. No masses noted. No JVD or thyromegaly appreciated. No carotid bruit. RESPIRATORY: Chest is symmetrical. No intercostals muscle retraction or any accessory muscle activation. There is no chest wall tenderness. Breath sounds are heard bilaterally. No rales or rhonchi heard. No evidence of any consolidation. BREASTS: Deferred. HEART: Heart sounds are normal with no S3 or S4. No significant murmurs. ABDOMEN: No vessel pulsations or distention. No tenderness. No organomegaly appreciated. No abdominal bruit. Bowel sounds are normally heard. : Deferred. RECTAL: Deferred. LYMPHATIC: No lymphadenopathy noted in the neck or groin. EXTREMITIES: No edema or cyanosis. No clubbing. Peripheral pulses are palpable and fairly good volume and amplitude MUSCULOSKELETAL: No acute joint deformities or swelling SKIN: There are no significant rashes. NEUROPSYCHIATRIC: The patient is alert and oriented x3. Appears to be in a good mood. The higher functions are grossly within normal limits. No tremors or rigidity noted. Data : 08/29/19 08:20 08/30/19 04:30 Other Labs: Abnormal lab results 08/30/19 Range/Units 04:30 GFR Calculation 84.5 L (90-130) mL/min Glucose 130 H (74-106) mg/dL US Vascular: My impression: Carotid examination was performed to evaluate the bilateral numbness of the upper extremities. She was found to have minimal plaques at the bifurcations and proximal internal carotid arteries bilaterally. No significant stenosis . EKG 2: My Interpretation: Normal sinus rhythm with nonspecific ST-T changes. Features of old septal AK. No new changes A&P Assessment and plan (1) Non-ST elevation AK (NSTEMI): The troponin TIA seems to be trending upwards. The most recent troponin T was 161 with a delta 129. We will continue the Lovenox, Plavix, beta-mary and aspirin. Cardiac catheterization this afternoon. We will keep her n.p.o. Based on the results, further recommendations will be made. Status: Acute Code(s): I21.4 - Non-ST elevation (NSTEMI) myocardial infarction (2) Cardiomyopathy: This could be related to the recent non-ST elevation myocardial infarction/related to chronic LV dysfunction. Hemodynamically she seems stable. May consider a follow-up echocardiogram in 3 months Status: Acute Qualifiers: Cardiomyopathy type: other Qualified Code(s): I42.8 - Other cardiomyopathies Code(s): I42.9 - Cardiomyopathy, unspecified (3) Hypotension: Since the patient has a chronic history of low blood pressure, she may not require any specific intervention at this time. Advised to continue on the current measures. Status: Acute Qualifiers: Hypotension type: other hypotension type Qualified Code(s): I95.89 - Other hypotension Code(s): I95.9 - Hypotension, unspecified (4) Hypothyroidism: Clinically euthyroid. Continue on the current medications. Status: Acute Qualifiers: Hypothyroidism type: acquired Qualified Code(s): E03.9 - Hypothyroidism, unspecified Code(s): E03.9 - Hypothyroidism, unspecified (5) Anxiety: In view of the patient's extreme anxiety, she may benefit from anxiolytics on a long-term basis. This needs to be discussed Status: Acute Code(s): F41.9 - Anxiety disorder, unspecified Additional A&P Information After reviewing the cardiac catheterization data, further recommendations will be made Attestations Medical Necessity Statement*: Patient requires continued hospital stay for close monitoring and further management Coding Level of Care Code Acute Priest for Chg Fwd Diagnoses Non-ST elevation AK (NSTEMI) I21.4 Cardiomyopathy I42.8 Cardiomyopathy type: other Hypotension I95.89 Hypotension type: other hypotension type Hypothyroidism E03.9 Hypothyroidism type: acquired Anxiety F41.9
--- NOTE | 2019-08-30 21:22 | PC.NURSE ---
Called to patient's room. Patient requesting TR band to be removed along with IVF. This nurse explained to patient the reasoning behind the need to keep both items on board. Voices understanding. But I still want them off. Will monitor. Family members have left the room.
[2019-08-30] MEDS: atorvastatin 40 mg Tablet PO (21:48)
[2019-08-30] MEDS: sodium chloride 0.9% 1,000 ML 50 ML IV (22:04)
--- NOTE | 2019-08-30 22:15 | PC.NURSE ---
TR band removed from right wrist with pressure dressing applied. No hematoma noted. Did notice edema to bilateral hands. Patient states, I have had bilateral carpal tunnel surgeries and my hands hurt.....I really want that thing off. Off as previously stated. Patient denies complaints after the removal of the TR band. Will monitor.
[2019-08-31] VITALS: BP 101/71; BP 102/70; PULSE 100; PULSE 99; RESP 18; TEMP 36.6; O2SAT 91; O2SAT 94
[2019-08-31 00:15] VITALS: BP 112/74; PULSE 99; RESP 20; O2SAT 93
--- NOTE | 2019-08-31 03:28 | PC.NURSE ---
IV site to left AC cleaned and redressed after patient accidentally pulled on it trying to get up. Flushes without difficulty. States, It's a good thing it's good cause I'm not doing another needle again. Up to bathroom and back to bed. Monitor continues with SR. Will monitor.
[2019-08-31 04:00] VITALS: BP 126/78; PULSE 106; RESP 22; TEMP 36.9
[2019-08-31 07:25] VITALS: BP 109/69; PULSE 100; RESP 25; TEMP 37.2; O2SAT 97
[2019-08-31] MEDS: buPROPion XL (24 HR) 150 mg Tablet PO (08:08)
[2019-08-31] MEDS: aspirin 325 mg EC Tablet PO (08:08)
--- NOTE | 2019-08-31 08:38 | P.DS_ITS ---
Discharge Providers Date of Admission: 08/29/19 11:07 Date of Discharge: 08/31/19 Attending Provider at Admission: Rama Rojas MD Attending Provider at Discharge: Rama Rojas MD Diagnoses at Discharge Discharge Diagnosis (1) Non-ST elevation PR (NSTEMI): Status: Acute Problem details: Non-ST elevation PR with delta troponin of 129. Cardiology consulted, Dr. Still and patient underwent cardiac cath on 08/30/2019 which showed no obstructive coronary artery disease. Medical management was recommended. (2) Cardiomyopathy: Status: Acute Qualifiers: Cardiomyopathy type: other Qualified Code(s): I42.8 - Other cardiomyopathies (3) Hypotension: Status: Acute Qualifiers: Hypotension type: other hypotension type Qualified Code(s): I95.89 - Other hypotension (4) Hypothyroidism: Status: Acute Problem details: No further hypotension, does have lower blood pressure and therefore no beta- mary was prescribed Qualifiers: Hypothyroidism type: acquired Qualified Code(s): E03.9 - Hypothyroidism, unspecified (5) Anxiety: Status: Acute Problem details: Anxiety and bereavement with recent loss of her near friend Reason for Visit Reason for Visit: Reason For Visit: Chest pain Hospital Course Hospital Course: Patient was seen and evaluated in the emergency department and admitted to the hospital due to concern for non-ST elevation PR. She had cardiology consultation and patient was scheduled for cardiac cath. Cardiac cath showed no obstructive coronary artery disease and patient was continued on medical management. On date of discharge she denied any chest pain, no shortness of breath, no abdominal pain or nausea. Reported that her headache had resolved. Discharge Summary: Discharge to home with Follow-up with cardiology office in 1 week, follow-up with Dr. Still in 4 to 6 weeks Follow-up with primary care provider in 3 to 5 days Do not return to work until cleared by cardiology office Physical Exam Const: COMMON NORMALS: oriented x3 and alert GENERAL APPEARANCE: cooperative ORIENTATION/CONSCIOUSNESS: Yes awake, Yes oriented to person, Yes oriented to place and Yes oriented to time HENMT: COMMON NORMALS: normocephalic and head/scalp atraumatic HEAD & SCALP: normocephalic and atraumatic Eye: COMMON NORMALS: PERRL PUPIL: Yes PERRL Neck/C-Spine: COMMON NORMALS: supple GENERAL: Yes normal visual inspection Resp: COMMON NORMALS: normal respiratory effort and clear to auscultation bilaterally EFFORT & INSPECTION: Yes able to speak in complete sentences AUSCULTATION: clear to auscultation bilaterally, no rhonchi and no wheezes Cardio: COMMON NORMALS: regular rate and regular rhythm RATE: regular rate RHYTHM: regular rhythm OTHER: GI: COMMON NORMALS: soft to palpation and non-tender INSPECTION: No abdominal distension AUSCULTATION: Yes normoactive bowel sounds PALPATION: Yes soft Extremity: COMMON NORMALS: no clubbing, cyanosis or edema and no calf tenderness Neuro: COMMON NORMALS: oriented x3, CN's II-XII intact bilaterally, moves all extremities and no focal motor deficits SENSORIUM/ORIENTATION: Yes alert, Yes oriented to person, Yes oriented to place and Yes oriented to time SPEECH: speech normal Psych: COMMON NORMALS: mental status grossly normal and cooperative Skin: COMMON NORMALS: no rashes or lesions noted GENERAL SKIN EXAM: no rashes or lesions noted Discharge Data Data Completed and Pending: Completed Studies During Hospitalization Category Date Time Status SUPERVISOR DISPLAY FABRICATION request for service Routin e Exams 08/30/19 16:07 Completed XR chest 1V tung ble [id number] Stat Exams 08/29/19 08:12 Completed CV echo complete* [id number] Urgent Ultrasound 08/29/19 11:06 Completed US carotid duplex bilateral [CV car otid duplex BI* Ultrasound 08/29/19 16:56 Completed [id number]] Stat Vitals: Last Vital Signs Temp 98.9 F 08/31/19 07:25 Pulse 100 08/31/19 07:25 Resp 25 H 08/31/19 07:25 BP 109/69 08/31/19 07:25 Pulse Ox 97 08/31/19 07:25 Discharge Plan Discharge Patient Disposition: Home, Self-Care Condition: Stable Prescriptions: New atorvastatin 40 mg Tablet 40 mg PO BEDTIME 30 Days Qty: 30 RF: 0 nitroglycerin [Nitrostat] 0.4 mg Tablet, Sublingual 0.4 mg sublingual Q5M PRN (Reason: Chest Pain) 30 Days Qty: 20 RF: 0 aspirin [Enteric Coated Aspirin] 81 mg tablet,delayed release (DR/EC) 81 mg PO DAILY 30 Days Qty: 30 RF: 0 Continued bupropion HCl 150 mg tablet extended release 24 hr 150 mg PO DAILY RF: 0 levothyroxine [Synthroid] 137 mcg tablet 137 mcg PO DAILY RF: 0 Discharge Orders: Discharge Order (Routine); Ordered 08/31/19 Ordered By: Rama Rojas Referrals: Anju Lloyd MD [Family Provider] - 1-3 days Danielle Still MD [Physician] - 1 month (With follow-up in cardiology clinic in [address] Still in 4 weeks) Discharge Diet: Cardiac Discharge Activity: Limit activity as instructed and Return to work/school after cleared by PCP/Specialist Activity Restrictions/Additional Instructions: Call your physician or present to the ER for any acute illness or concern Follow-up with cardiology office, nurse practitioner in 1 week. Follow-up with Dr. Still in 4 to 6 weeks. Follow-up with your primary care provider in 3 to 5 days Started on a statin medication, atorvastatin due to elevated cholesterol Recommend to take aspirin 81 mg daily Discharge Attestations Time Spent in Discharge Care*: greater than 30 min Quality Metrics Clinical Quality Measures During this hospital stay, did patient experience: AMI Clinical Trial Participant: No Contraindication to aspirin (AMI): Aspirin given Contraindication to statin: Statin prescribed Contraindication to PCI: PCI performed Contraindication to Fibrinolytics: Other Coding Level of Care Code Acute Radio Interference Trouble Shooter for [facility] Fwd Diagnoses Non-ST elevation PR (NSTEMI) I21.4 Cardiomyopathy I42.8 Cardiomyopathy type: other Hypotension I95.89 Hypotension type: other hypotension type Hypothyroidism E03.9 Hypothyroidism type: acquired Anxiety F41.9
--- NOTE | 2019-08-31 08:55 | PM.PN ---
Subjective Subjective: Interval history: The patient underwent left heart catheterization with left and right coronary angiogram yesterday. She was found to have no significant coronary artery disease. The right coronary artery had a 40% distal eccentric tubular narrowing. Her LVEDP was found to be elevated. Medications: Medication Review Details: Current Medications Al Hydrox/Mg Hydrox/Simethicone (Maalox) 30 ml PO Q15M PRN PRN Reason: INDIGESTION Alprazolam (Xanax) 0.25 mg PO TID PRN PRN Reason: ANXIETY Aspirin (Aspirin Ec) 325 mg PO DAILY [facility] Last Admin: 08/30/19 08:34 Dose: 325 mg Documented by: Atorvastatin Calcium (Lipitor) 40 mg PO BEDTIME [facility] Last Admin: 08/29/19 20:29 Dose: 40 mg Documented by: Atropine Sulfate (Atropine) 0.5 mg IVP PRN PRN PRN Reason: Symptomatic bradycardia Bupropion HCl (Wellbutrin Xl (24 Hr)) 150 mg PO DAILY [facility] Last Admin: 08/30/19 08:34 Dose: 150 mg Documented by: Cyclobenzaprine HCl (Flexeril) 5 mg PO TID PRN PRN Reason: MUSCLE SPASMS Fentanyl (Sublimaze) 50 mcg IVP PRN PRN PRN Reason: Prior to sheath removal Sodium Chloride (Sodium Chloride 0.9%) 1,000 mls @ 100 mls/hr IV .Q10H [facility] Last Admin: 08/30/19 14:30 Dose: 100 mls/hr Documented by: Levothyroxine Sodium (Synthroid) 112 mcg PO DAILY [facility] Levothyroxine Sodium (Synthroid) 25 mcg PO DAILY [facility] Magnesium Hydroxide (Milk Of Magnesia) 30 ml PO DAILY PRN PRN Reason: CONSTIPATION Morphine Sulfate (Morphine) 2 mg IVP Q4H PRN PRN Reason: SEVERE PAIN Naloxone HCl (Narcan) 0.1 mg IVP Q2M PRN PRN Reason: RESPIRATORY RATE < 8/MIN Nitroglycerin (Nitrostat) 0.4 mg SUBLINGUAL Q5M PRN PRN Reason: CHEST PAIN Last Admin: 08/29/19 23:56 Dose: 1 tab Documented by: Ondansetron HCl (Zofran) 4 mg IVP Q6H PRN PRN Reason: NAUSEA AND VOMITING Last Admin: 08/30/19 12:57 Dose: 4 mg Documented by: Oxycodone/Acetaminophen (Percocet 5-325 Mg) 1 tab PO Q4H PRN PRN Reason: SEVERE PAIN Last Admin: 08/30/19 09:39 Dose: 1 tab Documented by: Temazepam (Restoril) 15 mg PO BEDTIME PRN PRN Reason: INSOMNIA Vitals/I&O/Wt Last Vital Signs Temp 98.9 F 08/31/19 07:25 Pulse 100 08/31/19 07:25 Resp 25 H 08/31/19 07:25 BP 109/69 08/31/19 07:25 Pulse Ox 97 08/31/19 07:25 08/30/19 08/31/19 08/31/19 22:59 06:59 14:59 Intake Total 1360 / 2600 400 / 3000 Balance 1360 / 2600 400 / 3000 Weight last 48 hrs Weight 168 lb 11.2 oz Weight 164 lb 6.4 oz Physical Exam Narrative: EXAM NARRATIVE: GENERAL: The patient is alert and oriented times three. Not in any acute distress. HEENT: No significant pallor, icterus or lymphadenopathy. The pupils are equal. Oral cavity: There are no mucous membrane lesions. NECK: Trachea appears to be central. No masses noted. No JVD or thyromegaly appreciated. No carotid bruit. RESPIRATORY: Chest is symmetrical. No intercostals muscle retraction or any accessory muscle activation. There is no chest wall tenderness. Breath sounds are heard bilaterally. No rales or rhonchi heard. No evidence of any consolidation. BREASTS: Deferred. HEART: Heart sounds are normal with no S3 or S4. No significant murmurs. ABDOMEN: No vessel pulsations or distention. No tenderness. No organomegaly appreciated. No abdominal bruit. Bowel sounds are normally heard. : Deferred. RECTAL: Deferred. LYMPHATIC: No lymphadenopathy noted in the neck or groin. EXTREMITIES: No edema or cyanosis. No clubbing. Peripheral pulses are palpable and fairly good volume and amplitude. The right radial artery puncture site has no hematoma or bleeding MUSCULOSKELETAL: No acute joint deformities or swelling SKIN: There are no significant rashes. NEUROPSYCHIATRIC: The patient is alert and oriented x3. Appears to be in a good mood. The higher functions are grossly within normal limits. No tremors or rigidity noted. Data : 08/29/19 08:20 08/30/19 04:30 A&P Assessment and plan (1) Non-ST elevation HI (NSTEMI): Patient may be kept on baby aspirin 1 tablet p.o. daily. Metoprolol 12.5 mg p.o. twice daily. Atorvastatin 40 mg p.o. daily. Sublingual nitroglycerin as needed Status: Acute Code(s): I21.4 - Non-ST elevation (NSTEMI) myocardial infarction (2) Cardiomyopathy: Because of the relatively low blood pressure and the LV ejection fraction is 45 to 50%, I may hold off on ESTEFANÍA inhibitor at this time. Status: Acute Qualifiers: Cardiomyopathy type: other Qualified Code(s): I42.8 - Other cardiomyopathies Code(s): I42.9 - Cardiomyopathy, unspecified (3) Hypotension: Since the patient has a chronic history of low blood pressure, she may not require any specific intervention at this time. Advised to continue on the current measures. Status: Acute Qualifiers: Hypotension type: other hypotension type Qualified Code(s): I95.89 - Other hypotension Code(s): I95.9 - Hypotension, unspecified (4) Hypothyroidism: Clinically euthyroid. Continue on the current medications. Status: Acute Qualifiers: Hypothyroidism type: acquired Qualified Code(s): E03.9 - Hypothyroidism, unspecified Code(s): E03.9 - Hypothyroidism, unspecified (5) Anxiety: In view of the patient's extreme anxiety, she may benefit from anxiolytics on a long-term basis. This needs to be discussed Status: Acute Code(s): F41.9 - Anxiety disorder, unspecified Additional A&P Information If the patient continues remain stable, may be discharged home today. Do a BMP to evaluate her kidney function. May be discharged home on the following medications Metoprolol 12.5 mg p.o. twice daily Aspirin 81 mg p.o. daily Lipitor 40 mg p.o. daily Sublingual nitroglycerin as needed Appointment at the heart care services next week to be seen by the nurse practitioner Other medications as per the primary care Attestations Medical Necessity Statement*: Disposition as per the primary Coding Level of Care Code Acute Analyst for [facility] Diagnoses Non-ST elevation HI (NSTEMI) I21.4 Cardiomyopathy I42.8 Cardiomyopathy type: other Hypotension I95.89 Hypotension type: other hypotension type Hypothyroidism E03.9 Hypothyroidism type: acquired Anxiety F41.9
[2019-08-31 09:18] VITALS: BP 109/69; PULSE 100; RESP 25; TEMP 37.2; O2SAT 97
== END 2019-08-31 10:07 | disposition home or self-care (01) | DRG 281 ==
LOC: ER 12:07 → CSU 08-30 06:23 → ICU 08-30 07:05
PROVIDERS: Internal Medicine Cardiovascular Disease; Admitting Provider Family Medicine; Emergency Provider Family Medicine; Family Provider Family Medicine; Visit Provider Family Medicine
PROC: 4A023N7 Measurement of Cardiac Sampling and Pressure, Left Heart, Percutaneous Approach (ICD-10-PCS; principal; 2019-08-30 16:30)
DX: I21.4 Non-ST elevation (NSTEMI) myocardial infarction (principal); I42.9 Cardiomyopathy, unspecified; I25.10 Atherosclerotic heart disease of native coronary artery without angina pectoris; E03.9 Hypothyroidism, unspecified; D64.9 Anemia, unspecified; F41.9 Anxiety disorder, unspecified; F32.9 Major depressive disorder, single episode, unspecified; M79.7 Fibromyalgia; G47.00 Insomnia, unspecified; Z96.652 Presence of left artificial knee joint; Z87.891 Personal history of nicotine dependence; Z63.4 Disappearance and death of family member; R73.9 Hyperglycemia, unspecified; Z79.82 Long term (current) use of aspirin
CPT/HCPCS: 12345; 36415; 71045; 80048; 80061; 83036; 84443; 84484; 85025; 85610; 93005; 93306; 93452; 93880; 96374; 99282; C1769; C1887; C1894; J1200; J1644; J2001; J2250; J2270; J2405; J3010; J3490; J7030; Q9967

== ENCOUNTER → 2019-09-05 16:09 | Outpatient (BNVA) | payer BC, SELFPAY | PROVIDERS: Family Provider Family Medicine; PCP Family Medicine; Visit Provider Nurse Practitioner Family | DX: I25.10 Atherosclerotic heart disease of native coronary artery without angina pectoris (principal) | CPT/HCPCS: 80048 ==

== ENCOUNTER 2020-04-19 09:16 | Outpatient (RCR) | payer BC, SELFPAY | END 2020-05-08 23:59 | disposition home or self-care (01) | LOC: SPT 09:16 | PROVIDERS: PCP Family Medicine; Referring Provider Surgery; Visit Provider Surgery | DX: R20.2 Paresthesia of skin (principal); Z98.1 Arthrodesis status; R53.1 Weakness; R20.0 Anesthesia of skin | CPT/HCPCS: 97110; 97162 ==

== ENCOUNTER 2020-05-09 06:00 | Outpatient (RCR) | payer BC, SELFPAY | END 2020-06-08 23:59 | disposition home or self-care (01) | LOC: SPT 06:00 | PROVIDERS: PCP Family Medicine; Referring Provider Surgery; Visit Provider Surgery | DX: R20.2 Paresthesia of skin (principal); R53.1 Weakness; R20.0 Anesthesia of skin; Z98.1 Arthrodesis status | CPT/HCPCS: 97110 ==

== ENCOUNTER → 2020-07-10 13:47 | Outpatient (BNVA) | payer BC, SELFPAY | PROVIDERS: PCP Family Medicine; Visit Provider Internal Medicine Rheumatology | DX: R76.0 Raised antibody titer (principal); R76.8 Other specified abnormal immunological findings in serum; G62.9 Polyneuropathy, unspecified; Z79.899 Other long term (current) drug therapy; I65.02 Occlusion and stenosis of left vertebral artery; F17.210 Nicotine dependence, cigarettes, uncomplicated | CPT/HCPCS: 99204 ==

== ENCOUNTER 2020-07-10 16:16 | Outpatient (CLI) | payer BC, SELFPAY ==
[2020-07-10 17:07] LABS: Basophils # 0.1 10^3/uL (0.0-0.1); Basophils % 1.2 %; Eosinophils # 0.4 10^3/uL (0.0-0.8); Eosinophils % 5.2 %; Hematocrit 41.4 % (37.0-47.0); Hemoglobin 12.8 g/dL (11.5-15.3); Lymphocytes # 2.4 10^3/uL (0.8-4.8); Mean Corpuscular HGB Conc 30.9 g/dL (30.0-36.0); Mean Corpuscular Hemoglobin 26.1 pg (28.0-34.0); Mean Corpuscular Volume 84.3 fL (81-99); Mean Platelet Volume 10.4 fL (7.4-10.4); Monocytes # 0.6 10^3/uL (0.2-0.9); Monocytes % 8.3 %; Neutrophils # 4.16 10^3/uL (1.8-7.7); Nucleated Red Blood Cells % 0 %; Platelet Count 321 10^3/cmm (130-400); Red Blood Count 4.91 10^6/uL (4.1-5.3); White Blood Count 7.7 10^3/uL (4.0-10.0)
[2020-07-10 17:28] LABS: Alanine Aminotransferase 34 U/L (0-33); Albumin Level 4.6 g/dL (3.5-5.2); Alkaline Phosphatase 143 IU/L (35-105); Aspartate Amino Transferase 29 U/L (0-32); Gamma Glutamyl Transferase 76 U/L (5-36); Globulin 2.9 g/dL (1.3-4.6); Glomerular Filtration Rate 72.2 mL/min (90-130); Total Bilirubin 0.5 mg/dL (0.15-1.2); Total Protein 7.5 g/dL (6.6-8.7)
[2020-07-10 17:29] LABS: Urine Creatinine 45 mg/dL (28-217); Urine Protein Random 5 mg/dL
[2020-07-10 17:35] LABS: Bilirubin Urine Neg (Negative); Blood Urine Neg (Negative); Glucose Urine UA Norm (Normal); Ketones Urine Negative (Negative); Leukocyte Esterase Urine Negative (Negative); Nitrate Urine Negative (Negative); Protein Urine Neg (Negative); Specific Gravity, Urine 1.015 (1.005-1.030); Urine Appearance Clear (CLEAR); Urine Color Straw (Yellow); Urobilinogen Urine Norm (Negative); pH Urine 5 (5-7)
[2020-07-10 17:36] LABS: Add Urine Culture? No; Bacteria Urine TRACE /hpf; WBC Urine 0-4 /hpf (0-5)
[2020-07-10 18:06] LABS: Erythrocyte Sedimentation Rate 24 mm/hr (0-15)
[2020-07-12 12:38] LABS: COMPLEMENT COMPONENT C3C 183 mg/dL (83-193); COMPLEMENT COMPONENT C4C 37 mg/dL (15-57)
[2020-07-12 13:08] LABS: COMPLEMENT, TOTAL (CH50) >60 U/mL (31-60)
[2020-07-12 15:43] LABS: CENTROMERE B ANTIBODY <1.0 NEG AI (<1.0 NEG); JO-1 ANTIBODY <1.0 NEG AI (<1.0 NEG); RNP ANTIBODY <1.0 NEG AI (<1.0 NEG); SCL-70 ANTIBODY <1.0 NEG AI (<1.0 NEG); SJOGREN'S ANTIBODY (SS-A) <1.0 NEG AI (<1.0 NEG); SM ANTIBODY <1.0 NEG AI (<1.0 NEG); SS-B <1.0 NEG AI (<1.0 NEG)
[2020-07-12 16:14] LABS: THYROID PEROXIDASE ANTIBODIES 2 IU/mL (<9)
[2020-07-15 20:17] LABS: Smooth Muscle Ab Screen NEGATIVE (NEGATIVE)
[2020-07-15 22:18] LABS: DNA AB (DS) CRITHIDIA,IFA NEGATIVE (NEGATIVE)
[2020-07-16 18:27] LABS: ANA SCREEN, IFA POSITIVE (NEGATIVE)
== END 2020-07-10 16:17 | disposition home or self-care (01) ==
PROVIDERS: PCP Family Medicine; Visit Provider Internal Medicine Rheumatology
DX: G62.9 Polyneuropathy, unspecified (principal); R76.0 Raised antibody titer; R76.8 Other specified abnormal immunological findings in serum; Z79.899 Other long term (current) drug therapy
CPT/HCPCS: 36415; 80076; 81001; 82247; 82248; 82565; 82570; 82977; 83516; 84156; 85025; 85651; 86140

== ENCOUNTER → 2020-08-12 15:24 | Outpatient (BNVA) | payer BC, SELFPAY | PROVIDERS: PCP Family Medicine; Visit Provider Internal Medicine Rheumatology | DX: R76.0 Raised antibody titer (principal); R76.8 Other specified abnormal immunological findings in serum; R74.8 Abnormal levels of other serum enzymes; Z87.891 Personal history of nicotine dependence | CPT/HCPCS: 99213; 99214 ==

== ENCOUNTER 2021-02-27 12:47 | Outpatient (CLI) | payer MEDICARE, OTHER, SELFPAY ==
--- NOTE | 2021-02-27 15:00 | USCV_ITS ---
Suzan Moncada Age: 65 Gender: F : 1955 Exam Date: 02/27/2021 12:59 Ordering Phys: Danielle Still MD ([email or web address]) Technologist: Nandini Frank Exam Location: [facility] [place] Indication: CARDIOMYOPATHY BP: 114 / 68 HR: 81 Rhythm: Sinus Technical Quality: Adequate MEASUREMENTS (Male / Female) Normal Values 2D ECHO LV Diastolic Diameter PLAX 2.9 cm 4.2 - 5.9 / 3.9 - 5.3 cm LV Systolic Diameter PLAX 2.9 cm LV Chamber Size 3.1 cm IVS Diastolic Thickness 0.7 cm 0.6 - 1.0 / 0.6 - 0.9 cm IVS Systolic Thickness 1.4 cm LVPW Diastolic Thickness 2.5 cm 0.6 - 1.0 / 0.6 - 0.9 cm LVPW Systolic Thickness 1.4 cm RV Chamber Size 3.5 cm LVOT Diameter 2.1 cm LV Ejection Fraction 2D Teich 40.4 % LV Ejection Fraction MOD 2C 57.9 % LV Ejection Fraction 2C AL 58.9 % LA Diameter 3.3 cm LA Width 3.5 cm LA Height 4.2 cm RA Width 3.2 cm RA Height 2.6 cm Aorta at Sinotubular Diameter 2.7 cm M-MODE LV Diastolic Diameter MM 4.3 cm 4.2 - 5.9 / 3.9 - 5.3 cm LV Systolic Diameter MM 3.0 cm LV Ejection Fraction MM Teich 60.3 % IVS Diastolic Thickness MM 1.1 cm 0.6 - 1.0 / 0.6 - 0.9 cm IVS Systolic Thickness MM 1.6 cm LVPW Diastolic Thickness MM 1.2 cm 0.6 - 1.0 / 0.6 - 0.9 cm LVPW Systolic Thickness MM 1.9 cm RV Diastolic Diameter MM 1.8 cm Aortic Annulus Diameter 3.0 cm LA Ao Ratio MM 1.3 MV E Point Septal Separation 0.3 cm DOPPLER AV Peak Velocity 143.0 cm/s LVOT Peak Velocity 89.0 cm/s AV Area Cont Eq vti 3.2 cm squared AV Area Cont Eq pk 2.1 cm squared MV Area PHT 3.9 cm squared Mitral E to A Ratio 0.8 MV E' Velocity 39.0 cm/s Mitral E to MV E' Ratio 9.9 Mitral E to LV E' Lateral Ratio 9.9 Mitral E to LV E' Septal Ratio 10.0 TV Peak E Velocity 67.0 cm/s PV Peak Velocity 70.0 cm/s RV Acceleration Time 0.1 s RV Ejection Time 0.4 s RV AcT/ET 0.4 FINDINGS Left Ventricle Normal left ventricular size and systolic function, EF 60% (visual). No regional wall motion Grade I/IV diastolic dysfunction (abnormal relaxation filling pattern), normal to mildly elevated filling pressures. abnormalities. Right Ventricle Prominent trabeculations but not in the right ventricular apex. Normal RV size and ejection fraction. Right Atrium The right atrium is normal in size. Left Atrium The left atrium is normal in size. Mitral Valve No gross abnormalities noted Aortic Valve No gross abnormalities noted Tricuspid Valve Structurally normal tricuspid valve. Pulmonic Valve Structurally normal pulmonic valve. Pericardium Normal pericardium without effusion. Aorta Normal ascending aorta dimension. CONCLUSIONS Normal left ventricular size and systolic function, EF 60% (visual). No regional wall motion Grade I/IV diastolic dysfunction (abnormal relaxation filling pattern), normal to mildly elevated filling pressures. abnormalities. Normal cardiac chamber sizes. No significant stenotic or regurgitant lesions. There is no pericardial effusion. There are no intracardiac masses. Compared to the study from 08/29/2019, there is improvement of the LV ejection fraction Dr Danielle Still MD [facility] (Electronically Signed) Final Date: 27 February 2021 17:52 S
== END 2021-02-27 12:48 | disposition home or self-care (01) ==
PROVIDERS: PCP Family Medicine; Visit Provider Internal Medicine Cardiovascular Disease
DX: I21.4 Non-ST elevation (NSTEMI) myocardial infarction (principal); I42.0 Dilated cardiomyopathy
CPT/HCPCS: 93306

== ENCOUNTER 2021-03-20 06:00 | Outpatient (RCR) | payer MEDICARE, OTHER, SELFPAY | END 2021-04-08 23:59 | disposition home or self-care (01) | LOC: SPT 06:00 | PROVIDERS: PCP Family Medicine; Referring Provider Orthopaedic Surgery; Visit Provider Orthopaedic Surgery | DX: M25.572 Pain in left ankle and joints of left foot (principal) | CPT/HCPCS: 97110; 97161 ==

== ENCOUNTER 2021-06-02 06:00 | Outpatient (RCR) | payer MEDICARE, OTHER, SELFPAY | END 2021-06-08 23:59 | disposition home or self-care (01) | LOC: SPT 06:00 | PROVIDERS: PCP Family Medicine; Referring Provider Orthopaedic Surgery; Visit Provider Orthopaedic Surgery | DX: Z47.1 Aftercare following joint replacement surgery (principal); Z96.652 Presence of left artificial knee joint | CPT/HCPCS: 97110; 97161 ==

== ENCOUNTER 2021-06-09 06:00 | Outpatient (RCR) | payer MEDICARE, OTHER, SELFPAY | END 2021-06-27 15:57 | disposition home or self-care (01) | LOC: SPT 06:00 | PROVIDERS: PCP Family Medicine; Referring Provider Orthopaedic Surgery; Visit Provider Orthopaedic Surgery | DX: Z47.1 Aftercare following joint replacement surgery (principal); Z96.652 Presence of left artificial knee joint | CPT/HCPCS: 97110 ==

== ENCOUNTER 2021-12-10 09:40 | Outpatient (CLI) | payer MEDICARE, OTHER, SELFPAY ==
--- NOTE | 2021-12-10 10:00 | MM_ITS ---
WS: [id number] BILATERAL SCREENING 3D TOMOSYNTHESIS DIGITAL MAMMOGRAM WITH CAD HISTORY: SCREENING COMPARISON: 04/21/2017 Bilateral CC and MLO views submitted. Computer aided detection analyzed. Breast composition: The breasts are almost entirely fatty. No suspicious masses, microcalcifications or architectural distortion. MM/[place] [id number] IMPRESSION: BI-RADS: 1-Negative FOLLOW UP: 1 Year Follow-up
== END 2021-12-10 09:41 | disposition home or self-care (01) ==
LOC: RAD 09:43
PROVIDERS: PCP Family Medicine; Visit Provider Family Medicine
DX: Z12.31 Encounter for screening mammogram for malignant neoplasm of breast (principal)
CPT/HCPCS: 77063; 77067

== ENCOUNTER 2022-03-26 06:00 | Outpatient (RCR) | payer MEDICARE, OTHER, SELFPAY | END 2022-04-08 23:59 | disposition home or self-care (01) | LOC: SPT 06:00 | PROVIDERS: PCP Family Medicine; Visit Provider Family Medicine | DX: M25.512 Pain in left shoulder (principal) | CPT/HCPCS: 97110; 97161 ==

== ENCOUNTER 2022-04-09 06:00 | Outpatient (RCR) | payer MEDICARE, OTHER, SELFPAY | END 2022-05-08 23:59 | disposition home or self-care (01) | LOC: SPT 06:00 | PROVIDERS: PCP Family Medicine; Visit Provider Family Medicine | DX: M25.512 Pain in left shoulder (principal) | CPT/HCPCS: 97110; G0283 ==

== ENCOUNTER 2023-07-23 09:36 | Outpatient (CLI) | payer MEDICARE, OTHER, SELFPAY ==
--- NOTE | 2023-07-23 09:39 | MM_ITS ---
WS: [id number] VIEWS: MLO and CC views both breasts. 3D digital tomosynthesis is also included in this exam. Comparison made with prior exam of 02/25/2009. 02/08/2014. 04/21/2017. 12/10/2021.. Findings: There was no sign of mass, architectural distortion or suspicious calcification in either breast. The breasts are almost entirely fatty Impression: MM/[place] [id number] BI-RADS: 1-Negative FOLLOW-UP: 1 Year Follow-up This mammogram was also analyzed by the Computer Aided Detection System R2 [employer].
== END 2023-07-23 09:37 | disposition home or self-care (01) ==
LOC: RAD 09:36
PROVIDERS: PCP Family Medicine; Visit Provider Family Medicine
DX: Z12.31 Encounter for screening mammogram for malignant neoplasm of breast (principal)
CPT/HCPCS: 77063; 77067

== ENCOUNTER → 2023-08-25 09:27 | Outpatient (BNVA) | payer MEDICARE, OTHER, SELFPAY | PROVIDERS: PCP Family Medicine; Visit Provider Internal Medicine | DX: E03.9 Hypothyroidism, unspecified (principal); L65.9 Nonscarring hair loss, unspecified; E78.5 Hyperlipidemia, unspecified; Z79.890 Hormone replacement therapy | CPT/HCPCS: 99204 ==

== ENCOUNTER 2023-09-21 14:10 | Outpatient (CLI) | payer MEDICARE, OTHER, SELFPAY ==
[2023-09-21 15:10] LABS: Free T4 Free Thyroxine 1.46 ng/dL (0.82-1.77); Thyroid Stimulating Hormone 1.04 uIU/mL (0.27-4.20)
[2023-09-22 12:10] LABS: T3 Total 130 ng/dL (76-181)
[2023-09-23 08:14] LABS: Thyroglobulin AB 7 IU/mL (< or = 1)
[2023-09-24 08:09] LABS: Thyroid Peroxidase Antobodies 1 IU/mL (<9)
[2023-09-26 05:04] LABS: TSH Receptor Binding Antibody <1.00 IU/L (< OR = 2.00)
== END 2023-09-21 14:11 | disposition home or self-care (01) ==
LOC: LAB 14:11
PROVIDERS: PCP Family Medicine; Visit Provider Internal Medicine
DX: E03.9 Hypothyroidism, unspecified (principal); E78.5 Hyperlipidemia, unspecified
CPT/HCPCS: 36415; 83516; 84439; 84443; 84480; 86376; 86800

== ENCOUNTER 2023-11-01 12:16 | Outpatient (CLI) | payer MEDICARE, OTHER, SELFPAY ==
[2023-11-01 14:08] LABS: Free T4 Free Thyroxine 1.45 ng/dL (0.82-1.77); Thyroid Stimulating Hormone 2.76 uIU/mL (0.27-4.20)
[2023-11-02 11:30] LABS: T3 Total 133 ng/dL (76-181)
== END 2023-11-01 12:17 | disposition home or self-care (01) ==
LOC: LAB 12:20
PROVIDERS: PCP Family Medicine; Visit Provider Internal Medicine
DX: E03.9 Hypothyroidism, unspecified (principal); E78.5 Hyperlipidemia, unspecified
CPT/HCPCS: 36415; 84439; 84443; 84480

== ENCOUNTER → 2023-11-09 11:11 | Outpatient (BNVA) | payer MEDICARE, OTHER, SELFPAY | PROVIDERS: PCP Family Medicine; Visit Provider Internal Medicine | DX: E03.9 Hypothyroidism, unspecified (principal); L65.9 Nonscarring hair loss, unspecified; Z79.890 Hormone replacement therapy | CPT/HCPCS: 99214 ==

== ENCOUNTER 2023-12-17 16:09 | Emergency (ER) | payer MEDICARE, OTHER, SELFPAY ==
[2023-12-17 16:16] VITALS: BP 152/84; PULSE 70; RESP 18; TEMP 36.8; O2SAT 97; BMI 25.7
--- NOTE | 2023-12-17 16:27 | W.ED.EXTPRO ---
HPI - Extremity Problem General: Chief complaint: Extremity Injury, Upper Stated complaint: fall Time Seen by Provider: 12/17/23 16:22 Source: patient and EMS Mode of arrival: EMS Limitations: no limitations History of Present Illness: 68-year-old female states that she had tripped over a fence in her garden landed on her right shoulder just prior to arrival. She states she has severe right shoulder pain and felt a pop in her shoulder rates her pain an 8 out of 10. She denies hitting her head denies any other injuries. She denies any midline neck pain. Associated symptoms: Deny chest pain, fever(s) or rash Review of Systems Const: Denies: fever(s) or chills ENMT: Denies: throat pain or dental pain Card: Denies: chest pain Resp: Denies: dyspnea GI: Denies: abdominal pain, nausea, vomiting or diarrhea Musc: Reports: extremity pain; Denies: neck pain or back pain Skin/Breast: Denies: rash Neuro: Denies: headache(s) PFSH ED PFSH: Medical History High gamma glutamyl transferase (GGT) Positive ANDREI (antinuclear antibody) Raised antibody titer Vertebral artery stenosis Hypotension Cardiomyopathy Insomnia Fibromyalgia Anemia Anxiety Anxiety and bereavement with recent loss of her near friend Depression Hypothyroidism No further hypotension, does have lower blood pressure and therefore no beta-mary was prescribed Surgical History History of surgery vaginal prolapse repair Hx of cardiac cath 05/08/[address] Still History of bladder suspension procedure History of knee replacement L knee H/O tubal ligation Family History Grandmother Diabetes Mother History of permanent cardiac pacemaker placement Due to believed irregular heartbeat Father CAD (coronary artery disease) Other Hyperlipidemia Denies family history of Rheumatoid arthritis Lupus Family history of premature coronary artery disease Lung disease Cancer Hypertension Stroke Social History Smoking and tobacco/nicotine status: former use of tobacco/nicotine Alcohol intake: never Substance/Drug Use: never Household members: spouse Marital status: Physical Exam Const: COMMON NORMALS: no acute distress, patient oriented x3 and healthy appearing HENMT: COMMON NORMALS: normocephalic and atraumatic HEAD & SCALP: normocephalic and atraumatic Eye: COMMON NORMALS: conjunctivae normal CONJUNCTIVA: Yes conjunctivae normal Neck/C-Spine: COMMON NORMALS: full ROM and supple GENERAL: No tender Chest: COMMONS NORMALS: normal inspection of the chest and normal palpation of entire chest wall Resp: COMMON NORMALS: normal respiratory effort, No retractions, No use of accessory muscles and clear to auscultation bilaterally AUSCULTATION: clear to auscultation bilaterally Cardio: COMMON NORMALS: regular rate, regular rhythm and No murmurs present (Cardio) RATE: regular rate RHYTHM: regular rhythm Extremity: NARRATIVE EXTREMITY EXAM: Right arm is in a sling she does have tenderness over the right shoulder Neuro: COMMON NORMALS: patient oriented x3, moves all extremities and no focal motor deficits Psych: COMMON NORMALS: mental status grossly normal, Normal thought process present and cooperative THOUGHT PROCESS: Normal thought process present Skin: COMMON NORMALS: no rashes or lesions noted and no wounds GENERAL SKIN EXAM: no rashes or lesions noted Course Vital Signs: Vital signs: Vital Signs Temperature 98.2 F 12/17/23 16:16 Pulse Rate 70 12/17/23 16:16 Respiratory Rate 25 H 12/17/23 16:29 Blood Pressure 152/84 12/17/23 16:16 Pulse Oximetry 98 12/17/23 16:29 Oxygen Delivery Me thod Room Air 12/17/23 16:16 MDM - Extremity (Nontraumatic) Medical Decision Making Patient presents here with proximal humerus fracture to the right arm. She has no other injury noted no signs of head or neck injuries will place in a sling will get her follow-up with francois and place her on pain meds she stable for discharge. Medical Records I reviewed the patient's medical records. Lab Data I reviewed the patient's lab results. XR interpretation done by ED provider, pending radiology final review ED provider radiology interpretation(s): xr shoulder: proximal humerus fx Discharge Plan Discharge Patient Disposition: Home Clinical Impression: Closed fracture of proximal end of right humerus Qualifiers: Encounter type: initial encounter Fracture alignment: nondisplaced Condition: Stable Prescriptions: New hydrocodone-acetaminophen 5-325 mg tablet 1 tab PO Q6H PRN (Reason: pain) Qty: 14 0RF No Action vitamin B complex [B Complex-Vitamin B12] Tablet 1 tab PO DAILY cholecalciferol (vitamin D3) 25 mcg (1,000 unit) tablet 25 mcg PO DAILY gabapentin 100 mg capsule 100 mg PO TID estradiol 0.01 % (0.1 mg/gram) cream 1 g vaginal .2x a week Rx Instructions: for 14 days levothyroxine [Synthroid] 137 mcg tablet 137 mcg PO DAILY bupropion HCl 150 mg tablet extended release 24 hr 300 mg PO DAILY Discharge Orders: Discharge ED (Routine); Ordered 12/17/23 Ordered By: Leonel Marshall Referrals: Anju Lloyd MD [Primary Care Provider] - Justin Esteves DO [Physician] - 1-3 days Discharge Diet: Advance as tolerated Discharge Activity: Resume usual activity Patient Instructions: Arm Fracture in Adults (ED), Opioid Safety Coding Level of Care Code ED Environmental Laboratory Technician for [facility]
[2023-12-17 16:29] VITALS: RESP 25; O2SAT 98
[2023-12-17] MEDS: HYDROmorphone 1 mg/mL INJ 1 mL IVP (16:29)
[2023-12-17] MEDS: ondansetron 2 mg/ML SDV 2 mL 4 MG IVP (16:29)
--- NOTE | 2023-12-17 16:44 | XRR_ITS ---
PROCEDURE INFORMATION: Exam: XR Right Shoulder Exam date and time: 12/17/2023 5:03 PM Age: 68 years old Clinical indication: Pain; Shoulder; Right; Additional info: R shoulder pain TECHNIQUE: Imaging protocol: Radiologic exam of the right shoulder. Views: 2 or more views. COMPARISON: CR XR chest 1V portable [id number] 08/29/2019 8:18 AM FINDINGS: Bones/joints: There is a comminuted impacted appearing fracture of the humeral head predominantly involving the lateral side including the greater tuberosity. Cannot exclude intra-articular extension. The bones are demineralized. Soft tissues: Normal. XR/XR shoulder RT min 2V* [id number] IMPRESSION: Humeral head fracture as described above.
[2023-12-17 17:29] VITALS: RESP 25; O2SAT 98
--- NOTE | 2023-12-18 09:12 | DCPLANNER ---
Sent followup request to ortho clinic 12/18/23 @[id number]
== END 2023-12-17 17:30 | disposition home or self-care (01) ==
PROVIDERS: Emergency Provider Emergency Medicine; PCP Family Medicine
DX: S42.201A Unspecified fracture of upper end of right humerus, initial encounter for closed fracture (principal); Z87.891 Personal history of nicotine dependence; I42.9 Cardiomyopathy, unspecified; W18.09XA Striking against other object with subsequent fall, initial encounter; Y92.007 Garden or yard of unspecified non-institutional (private) residence as the place of occurrence of the external cause
CPT/HCPCS: 73030; 96374; 96375; 99284; J1170; J2405

== ENCOUNTER 2024-04-18 12:30 | Outpatient (RCR) | payer MEDICARE, OTHER, SELFPAY | END 2024-05-08 23:59 | disposition home or self-care (01) | LOC: SPT 12:30 | PROVIDERS: PCP Family Medicine; Visit Provider Orthopaedic Surgery | DX: S42.231D 3-part fracture of surgical neck of right humerus, subsequent encounter for fracture with routine healing (principal); X58.XXXD Exposure to other specified factors, subsequent encounter | CPT/HCPCS: 97110; 97161 ==

== ENCOUNTER 2024-05-09 06:00 | Outpatient (RCR) | payer MEDICARE, OTHER, SELFPAY | END 2024-06-08 23:59 | disposition home or self-care (01) | LOC: SPT 06:00 | PROVIDERS: PCP Family Medicine; Visit Provider Orthopaedic Surgery | DX: S42.231D 3-part fracture of surgical neck of right humerus, subsequent encounter for fracture with routine healing (principal); X58.XXXD Exposure to other specified factors, subsequent encounter | CPT/HCPCS: 97110 ==

== ENCOUNTER 2024-06-09 06:00 | Outpatient (RCR) | payer MEDICARE, OTHER, SELFPAY | END 2024-07-08 23:59 | disposition home or self-care (01) | LOC: SPT 06:00 | PROVIDERS: PCP Family Medicine; Visit Provider Orthopaedic Surgery | DX: S42.231D 3-part fracture of surgical neck of right humerus, subsequent encounter for fracture with routine healing (principal); X58.XXXD Exposure to other specified factors, subsequent encounter | CPT/HCPCS: 97110 ==

== ENCOUNTER 2024-07-09 06:00 | Outpatient (RCR) | payer MEDICARE, OTHER, SELFPAY | END 2024-08-08 23:59 | disposition home or self-care (01) | LOC: SPT 06:00 | PROVIDERS: PCP Family Medicine; Visit Provider Orthopaedic Surgery | DX: S42.231D 3-part fracture of surgical neck of right humerus, subsequent encounter for fracture with routine healing (principal); X58.XXXD Exposure to other specified factors, subsequent encounter | CPT/HCPCS: 97110 ==

== ENCOUNTER 2024-08-22 12:51 | Outpatient (RCR) | payer MEDICARE, OTHER, SELFPAY | END 2024-09-08 23:59 | disposition home or self-care (01) | LOC: SPT 12:51 | PROVIDERS: Visit Provider Orthopaedic Surgery | DX: S42.231D 3-part fracture of surgical neck of right humerus, subsequent encounter for fracture with routine healing (principal); X58.XXXD Exposure to other specified factors, subsequent encounter | CPT/HCPCS: 97110; 97161 ==

== ENCOUNTER 2024-09-09 06:00 | Outpatient (RCR) | payer MEDICARE, OTHER, SELFPAY | END 2024-10-06 23:59 | disposition home or self-care (01) | LOC: SPT 06:00 | PROVIDERS: PCP Family Medicine; Visit Provider Orthopaedic Surgery | DX: S42.231D 3-part fracture of surgical neck of right humerus, subsequent encounter for fracture with routine healing (principal); X58.XXXD Exposure to other specified factors, subsequent encounter | CPT/HCPCS: 97110 ==

== ENCOUNTER 2024-09-29 12:51 | Outpatient (CLI) | payer MEDICARE, OTHER, SELFPAY ==
[2024-09-29 13:45] LABS: Free T4 Free Thyroxine 1.27 ng/dL (0.82-1.77); Thyroid Stimulating Hormone 2.12 uIU/mL (0.27-4.20)
== END 2024-09-29 12:52 | disposition home or self-care (01) ==
LOC: LAB 12:53
PROVIDERS: PCP Family Medicine; Visit Provider Internal Medicine
DX: E03.9 Hypothyroidism, unspecified (principal)
CPT/HCPCS: 36415; 84439; 84443

== ENCOUNTER → 2024-10-02 09:23 | Outpatient (BNVA) | payer MEDICARE, OTHER, SELFPAY | PROVIDERS: PCP Family Medicine; Visit Provider Internal Medicine | DX: E03.9 Hypothyroidism, unspecified (principal); L65.9 Nonscarring hair loss, unspecified; R19.7 Diarrhea, unspecified | CPT/HCPCS: 99214 ==

== ENCOUNTER 2024-10-07 06:30 | Outpatient (RCR) | payer MEDICARE, OTHER, SELFPAY | END 2024-10-13 08:34 | disposition home or self-care (01) | LOC: SPT 06:30 | PROVIDERS: PCP Family Medicine; Visit Provider Orthopaedic Surgery | DX: S42.231D 3-part fracture of surgical neck of right humerus, subsequent encounter for fracture with routine healing (principal); X58.XXXD Exposure to other specified factors, subsequent encounter | CPT/HCPCS: 97110 ==

== ENCOUNTER 2025-01-03 10:48 | Outpatient (CLI) | payer MEDICARE, OTHER, SELFPAY ==
[2025-01-03 12:43] LABS: Free T4 Free Thyroxine 0.95 ng/dL (0.82-1.77); Thyroid Stimulating Hormone 7.77 uIU/mL (0.27-4.20)
== END 2025-01-03 10:49 | disposition home or self-care (01) ==
LOC: LAB 10:53
PROVIDERS: PCP Family Medicine; Visit Provider Internal Medicine
DX: E03.9 Hypothyroidism, unspecified (principal)
CPT/HCPCS: 36415; 84439; 84443

== ENCOUNTER 2025-03-29 11:29 | Outpatient (CLI) | payer MEDICARE, SELFPAY ==
[2025-03-29 12:48] LABS: Free T4 Free Thyroxine 1.29 ng/dL (0.82-1.77); Thyroid Stimulating Hormone 7.57 uIU/mL (0.27-4.20)
== END 2025-03-29 11:30 | disposition home or self-care (01) ==
PROVIDERS: PCP Family Medicine; Visit Provider Internal Medicine
DX: E03.9 Hypothyroidism, unspecified (principal)
CPT/HCPCS: 84439; 84443

== ENCOUNTER → 2025-04-02 10:57 | Outpatient (BNVA) | payer MEDICARE, OTHER, SELFPAY | PROVIDERS: PCP Family Medicine; Visit Provider Internal Medicine | DX: E03.9 Hypothyroidism, unspecified (principal); L65.9 Nonscarring hair loss, unspecified | CPT/HCPCS: 99214 ==

== ENCOUNTER 2025-05-16 13:00 | Outpatient (CLI) | payer MEDICARE, OTHER, SELFPAY ==
[2025-05-16 14:36] LABS: Free T4 Free Thyroxine 1.69 ng/dL (0.82-1.77); Thyroid Stimulating Hormone 0.32 uIU/mL (0.27-4.20)
== END 2025-05-16 13:01 | disposition home or self-care (01) ==
LOC: LAB 13:03
PROVIDERS: PCP Family Medicine; Visit Provider Internal Medicine
DX: E03.9 Hypothyroidism, unspecified (principal); L65.9 Nonscarring hair loss, unspecified
CPT/HCPCS: 36415; 84439; 84443; 84480